=== PATIENT | female | born 1950 | race Caucasian/White ===

== ENCOUNTER → 2016-06-19 | Outpatient (CLI) | payer MEDICARE, BC ==
[2016-06-19 11:37] VITALS: BP 150/70; PULSE 89; RESP 16; TEMP 98.2; BMI 39.8
--- NOTE | 2016-06-20 07:12 | PN ---
DATE OF SERVICE: 06/19/2016 CHIEF COMPLAINT: Bariatric assessment. HISTORY OF PRESENT ILLNESS: Claudette Al is a 65-year-old female with long-standing history of morbid obesity. At a height of 5 feet and 1/4 inch, her highest weight was 210 pounds. Her ideal body weight is 127 pounds. Today she comes in weighing 205 pounds. She has maintained a 5 pound weight loss. Body mass index reduced from 40.8 down to 40. She is also looking into a Haydee-en-Y gastric bypass for the severity of gastroesophageal reflux disease. She also has intermittent abdominal pain particularly along the right upper quadrant. She has completed CT of the abdomen and pelvis which demonstrated no obstruction. Otherwise, she has completed medical supervised weight loss also with her primary care provider. She has completed a medical risk assessment as well. Now she presents for further evaluation and management. PAST MEDICAL HISTORY: 1. Morbid obesity. 2. Gastroesophageal reflux disease. 3. Hypertension. 4. Depression. 5. Chronic obstructive pulmonary disease. 6. Osteoarthritis of the lower back. 7. Osteoarthritis of the bilateral hips. 8. History of Faye's esophagus. 9. Posttraumatic stress disorder. PAST SURGICAL HISTORY: 1. Colonoscopy. 2. Upper endoscopy. 3. Lower back surgery. 4. Cholecystectomy. MEDICATIONS: 1. Multivitamin. 2. Xopenex. 3. Cymbalta. 4. Q-Deyanira. 5. Aspirin. 6. Vitamin C. ALLERGIES: PENICILLIN. SOCIAL HISTORY: Lifelong nontobacco user. She is . FAMILY HISTORY: Pertinent for morbid obesity. Also familial history of cancer of unknown type. REVIEW OF SYSTEMS: CONSTITUTIONAL: [place] body weight of 127 pounds. She is 78 pounds overweight. Body mass index reduced from 40.8 down to 40. HEENT: No troubles with vision or hearing. No reports of recent dysphagia. ENDOCRINE: No reports of thyroid disorders or active diabetes. RESPIRATORY: No recent pneumonia. However, has chronic obstructive pulmonary disease. Also, with sleep apnea. CARDIOVASCULAR: History of hypertension. No recent heart attack. GASTROINTESTINAL: History of Faye's esophagus and severe gastroesophageal reflux disease. MUSCULOSKELETAL: Osteoarthritis of the lower back. Also osteoarthritis of the bilateral hips secondary to morbid obesity. NEURO: No reports of stroke or seizure disorders. PSYCH: Has depression including posttraumatic stress disorder. No recent psychosis. HEMATOLOGIC: No reports of pulmonary embolisms or DVTs. PHYSICAL EXAM: VITAL SIGNS: 98.2, 89, 16, 150/70, 5 feet 1/4 inch, 205 pounds. Body mass index 39.8. ABDOMEN: Protuberant, soft. GENERAL: Well-developed, pleasant female in no acute distress. HEENT: No scleral icterus. Extraocular movements grossly intact. Moist buccal mucosa. NECK: Supple without lymphadenopathy. CHEST: Nonlabored respirations. Equal bilateral excursions. CARDIOVASCULAR: Regular rate and rhythm. MUSCULOSKELETAL: No clubbing, cyanosis, or edema. NEURO: No focal or lateralizing signs. Cranial nerves II to XII grossly intact. PSYCH: Appropriate affect. Alert and oriented to person, place, and time. STUDIES: CT of the abdomen and pelvis was reviewed, demonstrating no acute processes. A 12-lead EKG demonstrated normal sinus rhythm. LABS: Hemoglobin was normal at 13.8. Cholesterol was elevated at 215. LDL was elevated at 167. Vitamin D was running low at 22.2. ASSESSMENT: 1. Morbid obesity due to excess calories. 2. Body mass index reduced from 40.8 down to 40. 3. History of diffuse abdominal pain. 4. Osteoarthritis of bilateral hips. 5. Osteoarthritis of bilateral knees. 6. Gastroesophageal reflux disease with history of Faye's esophagus. 7. Diaphragmatic hiatal hernia. 8. Essential hypertension. 9. Right upper quadrant abdominal pain. 10. Panniculitis. 11. History of depression without suicidal ideation. 12. Hypertensive heart disease. 13. Chronic obstructive pulmonary disease. 14. Obstructive sleep apnea. 15. Depression. 16. Osteoarthritis of lower back. 17. Dietary surveillance and counseling. PLAN: 1. A second-generation bariatric consent form was reviewed in detail including benefits and risks of the band, sleeve as well as a Haydee-en-Y gastric bypass. As she has had previous abdominal surgeries, risk for a sleeve gastrectomy was described at length as moderate intra-abdominal scar tissue is contraindicated. 2. Inpatient hospitalization greater than 2 nights advised. 3. Deep venous thrombosis prophylaxis. 4. Antibiotic prophylaxis. 5. Increased risk for gastrojejunal stricture including protein malnutrition was reviewed at length. 6. Recommend 2 week high protein, low caloric diet to address hepatomegaly. 7. I have also asked the patient to identify protein shakes of her choice now as to avoid any further troubles with her nutrition after surgery. [facility]
== END | disposition home or self-care (01) ==
LOC: BARWHC3 10:42
PROVIDERS: ATTEND Surgery Plastic and Reconstructive Surgery
DX: Z01.818 Encounter for other preprocedural examination (principal); E66.01 Morbid (severe) obesity due to excess calories; Z68.41 Body mass index [BMI] 40.0-44.9, adult; K21.9 Gastro-esophageal reflux disease without esophagitis; K22.70 Barrett's esophagus without dysplasia
CPT/HCPCS: 99211

== ENCOUNTER 2016-07-14 07:33 | Inpatient (IN) | payer MEDICARE, BC ==
--- NOTE | 2016-07-14 06:15 | P.GSHP ---
History of Present Illness H&P Date: 07/14/16 CHIEF COMPLAINT: Bariatric assessment. HISTORY OF PRESENT ILLNESS: Claudette Al is a 65-year-old female with long-standing history of morbid obesity. At a height of 5 feet and 1/4 inch, her highest weight was 210 pounds. Her ideal body weight is 127 pounds. Today she comes in weighing 204 pounds. She has maintained a 5 pound weight loss. Body mass index reduced from 40.8 down to 40. She is also looking into a Haydee-en-Y gastric bypass for the severity of gastroesophageal reflux disease. She has completed medical supervised weight loss also with her primary care provider. She has completed a medical risk assessment as well. PAST MEDICAL HISTORY: 1. Morbid obesity. 2. Gastroesophageal reflux disease. 3. Hypertension. 4. Depression. 5. Chronic obstructive pulmonary disease. 6. Osteoarthritis of the lower back. 7. Osteoarthritis of the bilateral hips. 8. History of Faye's esophagus. 9. Posttraumatic stress disorder. PAST SURGICAL HISTORY: 1. Colonoscopy. 2. Upper endoscopy. 3. Lower back surgery. 4. Cholecystectomy. MEDICATIONS: 1. Multivitamin. 2. Xopenex. 3. Cymbalta. 4. Q-Deyanira. 5. Aspirin. 6. Vitamin C. ALLERGIES: PENICILLIN. SOCIAL HISTORY: Lifelong nontobacco user. She is . FAMILY HISTORY: Pertinent for morbid obesity. Also familial history of cancer of unknown type. REVIEW OF SYSTEMS: CONSTITUTIONAL: [place] body weight of 127 pounds. She is 78 pounds overweight. Body mass index reduced from 40.8 down to 40. HEENT: No troubles with vision or hearing. No reports of recent dysphagia. ENDOCRINE: No reports of thyroid disorders or active diabetes. RESPIRATORY: No recent pneumonia. However, has chronic obstructive pulmonary disease. Also, with sleep apnea. CARDIOVASCULAR: History of hypertension. No recent heart attack. GASTROINTESTINAL: History of Faye's esophagus and severe gastroesophageal reflux disease. MUSCULOSKELETAL: Osteoarthritis of the lower back. Also osteoarthritis of the bilateral hips secondary to morbid obesity. NEURO: No reports of stroke or seizure disorders. PSYCH: Has depression including posttraumatic stress disorder. No recent psychosis. HEMATOLOGIC: No reports of pulmonary embolisms or DVTs. PHYSICAL EXAM: VITAL SIGNS: 98.2, 89, 16, 150/70, 5 feet 1/4 inch, 205 pounds. Body mass index 39.8. ABDOMEN: Protuberant, soft. GENERAL: Well-developed, pleasant female in no acute distress. HEENT: No scleral icterus. Extraocular movements grossly intact. Moist buccal mucosa. NECK: Supple without lymphadenopathy. CHEST: Nonlabored respirations. Equal bilateral excursions. CARDIOVASCULAR: Regular rate and rhythm. MUSCULOSKELETAL: No clubbing, cyanosis, or edema. NEURO: No focal or lateralizing signs. Cranial nerves II to XII grossly intact. PSYCH: Appropriate affect. Alert and oriented to person, place, and time. ASSESSMENT: 1. Morbid obesity due to excess calories. 2. Body mass index reduced from 40.8 down to 40. 3. History of diffuse abdominal pain. 4. Osteoarthritis of bilateral hips. 5. Osteoarthritis of bilateral knees. 6. Gastroesophageal reflux disease with history of Faye's esophagus. 7. Diaphragmatic hiatal hernia. 8. Essential hypertension. 9. Right upper quadrant abdominal pain. 10. Panniculitis. 11. History of depression without suicidal ideation. 12. Hypertensive heart disease. 13. Chronic obstructive pulmonary disease. 14. Obstructive sleep apnea. 15. Depression. 16. Osteoarthritis of lower back. 17. Dietary surveillance and counseling. PLAN: 1. A second-generation bariatric consent form was reviewed in detail including benefits and risks of the band, sleeve as well as a Haydee-en-Y gastric bypass. As she has had previous abdominal surgeries, risk for a sleeve gastrectomy was described at length as moderate intra-abdominal scar tissue is contraindicated. 2. Inpatient hospitalization greater than 2 nights advised. 3. Deep venous thrombosis prophylaxis. 4. Antibiotic prophylaxis. 5. She has elected for laparoscopic Haydee-en-Y gastric bypass with possible sleeve gastrectomy. Past Medical History Past Medical History: Asthma, Osteoarthritis (OA) Additional Past Medical History / Comment(s): degenerative disc desease, spinal stenosis, hiatel hernia History of Any Multi-Drug Resistant Organisms: None Reported Past Surgical History: Back Surgery, Cholecystectomy Additional Past Surgical History / Comment(s): Barrets esophagus surgery 2008 at [facility] in [facility]. Past Anesthesia/Blood Transfusion Reactions: Postoperative Nausea & Vomiting ( PONV) Additional Past Anesthesia/Blood Transfusion Reaction / Comment(s): no problems with prior blood transfusion. Past Psychological History: Depression, PTSD Smoking Status: Never smoker Past Alcohol Use History: None Reported Past Drug Use History: None Reported - Past Family History Father Family Medical History: Cancer Medications and Allergies Home Medications Medication Instructions Recorded Confirmed Type Ascorbic Acid [Vitamin C] 500 mg PO DAILY@1200 04/25/15 07/02/16 History Aspirin [Adult Low Dose Aspirin EC] 81 mg PO DAILY 04/25/15 07/02/16 History Beclomethasone Dipropionate [Qvar 2 puff INHALATION BID 04/25/15 07/02/16 History 80 mcg/puff] DULoxetine HCL [Cymbalta] 60 mg PO QAM 04/25/15 07/02/16 History Levalbuterol HCl [Xopenex 1.25 mg IH BID 04/25/15 07/02/16 History Concentrate] Multivitamins, Thera [Theragran] 1 each PO DAILY 04/25/15 07/02/16 History Megestrol [Megace] 40 mg PO QAM 05/15/16 07/02/16 History Ibuprofen [Advil] 200 mg PO Q8HR PRN 07/11/16 07/11/16 History Allergies Allergy/AdvReac Type Severity Reaction Status Date / Time Penicillins Allergy Dyspnea Verified 07/02/16 08:43 hydrocodone [From Coldiron] AdvReac Nausea Verified 07/02/16 08:54
[~2016-07-14 07:33] MED LIST: ACETAMINOPHEN IV (For NPO) 1,000 MG in EMPTY BAG 1 BAG IVPB ONE; CHLORHEXIDINE GLUCONATE 15 ML CUP MUCOUS MEM ONE; CLINDAMYCIN 900 MG in DEXTROSE 5% IN WATER 50 ML IVPB ONE; DEXAMETHASONE SOD PHOSPHATE 10 MG/ML 1 ML VIAL IV ONE; ENOXAPARIN 40 MG/0.4 ML SYRINGE SQ STA; LIDOCAINE 1% 20 ML VIAL (10MG/ML) FOR IV START INTRADERMA PRN; ONDANSETRON 4 MG/2 ML VIAL IVP ONE; PANTOPRAZOLE 40 MG/10 ML VIAL IV STA
[2016-07-14] MEDS: LACTATED RINGERS 1,000 ML IV SCH (08:28)
[2016-07-14] MEDS ORDERED: fentaNYL (PF) 50 MCG/ML 2 ML AMP ONE (09:24)
[2016-07-14] MEDS ORDERED: ROCURONIUM BROMIDE 10 MG/ML 10 ML VIAL IV ONE ×2 (09:24)
[2016-07-14] MEDS ORDERED: GLYCOPYRROLATE 0.2 MG/ML 2 ML VIAL ONE (09:24)
[2016-07-14] MEDS ORDERED: SUCCINYLCHOLINE CHLORIDE 100 MG/5 ML SYR IV ONE (09:24)
[2016-07-14] MEDS ORDERED: LIDOCAINE 1% INJ 10MG/ML (20 ML MDV) ONE (09:24)
[2016-07-14] MEDS ORDERED: MIDAZOLAM 2 MG/2 ML VIAL ONE (09:24)
[2016-07-14] MEDS ORDERED: NEOSTIGMINE 1 MG/ML 10 ML VIAL ONE (09:24)
[2016-07-14] MEDS ORDERED: PHENYLEPHRINE-0.9% NACL SYG 1 MG/10 ML SYRINGE ONE (09:24)
[2016-07-14] MEDS ORDERED: PROPOFOL 10 MG/ML 20 ML VIAL IV ONE (09:24)
[2016-07-14] MEDS: BUPIVACAINE LIPOSOME/PF 1.3% 20 ML, BUPIVACAIN-EPI 0.5%-1:200,000 25 ML, SODIUM CHLORID... MISCELLANE ONE ×6 (09:57→10:05)
[2016-07-14] MEDS ORDERED: LACTATED RINGERS 1,000 ML IV ONE ×2 (10:57→13:07)
[2016-07-14] MEDS ORDERED: SIMETHICONE 40 MG/0.6 ML DROPS 2,000 MG/30 ML BOTTLE PO PRN (14:14)
[2016-07-14] MEDS ORDERED: ONDANSETRON 4 MG/2 ML VIAL IVP PRN (14:14)
[2016-07-14] MEDS ORDERED: NALOXONE 0.4 MG/ML 1 ML VIAL IV PRN (14:14)
[2016-07-14] MEDS ORDERED: diphenhydrAMINE 50 MG/ML 1 ML VIAL IVP PRN (14:14)
--- NOTE | 2016-07-14 14:14 | P.PCN ---
Date of Procedure: 07/14/16 Preoperative Diagnosis: Morbid obesity Postoperative Diagnosis: Same Procedure(s) Performed: Laparoscopic Haydee-en-Y gastric bypass 75 cm antecolic antigastric with 21 mm Orvil, laparoscopic lysis of adhesions hour 45 minutes, reduction of incarcerated incisional hernia epigastrium, esophagogastro duodenoscopy with snare of foreign body/Orvil, esophagogastrojejunoscopy Condition: stable Operative Findings: 1. Severe adhesions along the gastric cardia and hiatus from previous transendoscopic fundoplasty. 2. Severe peritoneal adhesions epigastrium and bilateral upper abdomen from previous open cholecystectomy 3. Indications and short greater omentum requiring limb 75 cm with minimal tension. 4. In negative leak test with reinforcement of gastrojejunostomy at the 12:00, 9:00 and 3 o'clock position 5. Placement of #19 round Geoffrey-Rosario drain anterior to the gastrojejunal anastomosis secondary to contamination of case. 6. Closure of mesenteric defects performed.
[2016-07-14] MEDS: LEVOFLOXACIN 500MG-D5W PMX 500 MG in DEXTROSE/WATER 1 100ML.BAG IVPB SCH (14:46)
[2016-07-14] MEDS ORDERED: ACETAMINOPHEN IV (For NPO) 1,000 MG in EMPTY BAG 1 BAG IVPB ONE (15:00)
[2016-07-14] MEDS: HYDROmorphone 1 MG/ML 1 ML SYRINGE IVP PRN ×5 (15:07→20:37)
[2016-07-14 16:19] VITALS: BMI 35.1
[2016-07-14] MEDS: ALBUTEROL NEBULIZED 2.5 MG/3 ML INHALATION SCH ×2 (16:21→20:09)
[2016-07-14] MEDS: 0.9% NACL WITH KCL 20 MEQ/L 1,000 ML IV SCH ×3 (18:16→21:43)
[2016-07-14] MEDS ORDERED: SCOPOLAMINE 1.5MG/72HR PATCH TRANSDERM STA (19:12)
--- NOTE | 2016-07-14 19:18 | P.PN ---
Subjective Principal diagnosis: Morbid obesity The patient is postoperative day zero status post Haydee-en-Y gastric bypass. She is ambulating with some assistance. She has urinated. She complains of some nausea. Pain is controlled. Objective - Vital Signs Vital signs: Vital Signs Temp 97.0 F L 07/14/16 15:40 Pulse 68 07/14/16 17:30 Resp 14 07/14/16 16:21 BP 137/71 07/14/16 17:30 Pulse Ox 98 07/14/16 16:30 Intake & Output 07/14/16 07/14/16 07/15/16 06:59 18:59 06:59 Intake Total 2606 Output Total 1265 Balance 1341 Weight 90 kg Intake: IV 2606 Output: Drainage 80 Right Abdomen 80 Urine 1125 Uretheral (Costa) 150 Estimated Blood Loss 60 - Exam GENERAL: Well developed and in no acute distress. Pleasant. HEENT: No sclera icterus. Extraocular movements grossly intact. Moist buccal mucosa. Head is atraumatic, normocephalic. Hears conversational speech. No nasal drainage. NECK: Supple without lymphadenopathy. No JV distention. CHEST: Non-labored respirations and equal bilateral excursions. CARDIOVASCULAR: Regular rate and rhythm. Palpable 2+ radial pulses. ABDOMEN: Soft, minimal distention. THEODORA serosanguineous. MUSCULOSKELETAL: No clubbing, cyanosis or edema. NEUROLOGIC: No focal or lateralizing signs. PSYCH: Appropriate affect. Alert and oriented to person, place and time. Assessment and Plan (1) Morbid obesity due to excess calories Status: Chronic (2) S/P gastric bypass Status: Acute (3) Reflux esophagitis Status: Chronic (4) Hypertension Status: Chronic (5) Depression Status: Chronic Plan: 1. I have added scopolamine patch and Reglan scheduled. 2. Ice chips at this time. 3. Continue her hospitalization. 4. Home healthcare consult.
[2016-07-14] MEDS: METOCLOPRAMIDE 5 MG/ML 2 ML VIAL IVP SCH (20:03)
[2016-07-14] MEDS: BUDESONIDE 1 MG/2 ML NEBU INHALATION SCH (20:09)
[2016-07-14] MEDS: MAGNESIUM SULFATE-D5W PMX 1 GM in DEXTROSE/WATER 1 100ML.BAG IVPB SCH ×2 (20:41→22:13)
[2016-07-15] MEDS: METOCLOPRAMIDE 5 MG/ML 2 ML VIAL IVP SCH ×4 (00:05→18:09)
[2016-07-15] MEDS: HYDROmorphone 1 MG/ML 1 ML SYRINGE IVP PRN (06:59)
[2016-07-15] MEDS: ENOXAPARIN 40 MG/0.4 ML SYRINGE SQ SCH (08:35)
[2016-07-15] MEDS: PANTOPRAZOLE 40 MG/10 ML VIAL IV SCH (08:35)
[2016-07-15 08:42] LABS: Basophils % (A) 0 %; CHCM 33.2; Eosinophils % (A) 0 %; HCT 34.5 % (34.0-46.0); HDW 2.67; Luc # (Auto) 0.07; Luc % (Auto) 1; Lymphocytes % (A) 11 %; MCH 28.9 pg (25.0-35.0); MCHC 31.8 g/dL (31.0-37.0); MCV 90.8 fL (80.0-100.0); Mean Platelet Volume 8.3; Monocytes # (A) 0.4 k/uL (0-1.0); Monocytes % (A) 4 %; Neutrophils # (A) 8.1 k/uL (1.3-7.7); Neutrophils % (A) 85 %; RDW 13.3 % (11.5-15.5); WBC 9.5 k/uL (3.8-10.6); WBC (Perox) 10.49
[2016-07-15] MEDS: BUDESONIDE 1 MG/2 ML NEBU INHALATION SCH ×2 (08:59→20:32)
[2016-07-15] MEDS: ALBUTEROL NEBULIZED 2.5 MG/3 ML INHALATION SCH ×4 (08:59→20:32)
[2016-07-15 09:10] LABS: Anion Gap 10 mmol/L; Blood Urea Nitrogen 11 mg/dL (7-17); Carbon Dioxide 22 mmol/L (22-30); Chloride 106 mmol/L (98-107); Magnesium 2.2 mg/dL (1.6-2.3); Non-African American GFR(MDRD) >60 (>60 ml/min/1.73 sqM); Phosphorous 2.7 mg/dL (2.5-4.5); Potassium 4.5 mmol/L (3.5-5.1); Sodium 138 mmol/L (137-145)
--- NOTE | 2016-07-15 09:39 | P.PN ---
Subjective Principal diagnosis: Morbid obesity The patient is postoperative day one status post Haydee-en-Y gastric bypass. Her is at bedside. Pain is well controlled. Denies nausea or vomiting. No fevers or chills. Objective - Vital Signs Vital signs: Vital Signs Temp 98.7 F 07/15/16 07:00 Pulse 85 07/15/16 09:14 Resp 16 07/15/16 07:00 BP 124/70 07/15/16 07:00 Pulse Ox 95 07/15/16 09:04 Intake & Output 07/14/16 07/15/16 07/15/16 18:59 06:59 18:59 Intake Total 2606 1550 Output Total 1265 Balance 1341 1550 Weight 90 kg Intake: IV 2606 1550 0.9% NaCl with KCl 20 Meq 1350 /l 1,000 ml @ 150 mls/hr IV .Q6H40M [facility] Rx#: [id number] Magnesium Sulfate-D5w Pmx 200 1 gm In Dextrose/Water 1 100ml.bag @ 100 mls/hr IVPB Q1H [facility] Rx#: [id number] Output: Drainage 80 Right Abdomen 80 Urine 1125 Uretheral (Costa) 150 Estimated Blood Loss 60 Other: Voiding Method Toilet # Voids 3 1 - Exam GENERAL: Well developed and in no acute distress. Pleasant. HEENT: No sclera icterus. Extraocular movements grossly intact. Moist buccal mucosa. Head is atraumatic, normocephalic. Hears conversational speech. No nasal drainage. NECK: Supple without lymphadenopathy. No JV distention. CHEST: Non-labored respirations and equal bilateral excursions. CARDIOVASCULAR: Regular rate and rhythm. Palpable 2+ radial pulses. ABDOMEN: Soft, minimal distention. Dressings intact. No signs of cellulitis or infection. THEODORA sanguinous. MUSCULOSKELETAL: No clubbing, cyanosis or edema. NEUROLOGIC: No focal or lateralizing signs. PSYCH: Appropriate affect. Alert and oriented to person, place and time. - Labs CBC & Chem 7: 07/16/16 07:27 07/15/16 08:29 Labs: Abnormal Lab Results - Last 24 Hours (Table) 07/15/16 07/15/16 Range/Units 08:25 08:29 Hgb 11.0 L (11.4-16.0) gm/dL Neutrophils # 8.1 H (1.3-7.7) k/uL Calcium 8.0 L (8.4-10.2) mg/dL Assessment and Plan (1) Morbid obesity due to excess calories Status: Chronic (2) S/P gastric bypass Status: Acute (3) Reflux esophagitis Status: Chronic (4) Hypertension Status: Chronic (5) Depression Status: Chronic Plan: 1. Start bariatric clears. 2. Home heathcare evaluation. 3. Disposition in 24 hrs.
[2016-07-15] MEDS: 0.9% NACL WITH KCL 20 MEQ/L 1,000 ML IV SCH (10:08)
[2016-07-15] MEDS: LACTATED RINGERS 1,000 ML IV SCH (10:09)
[2016-07-15] MEDS ORDERED: SODIUM CHLORIDE 0.9% 1,000 ML BAG ONE (11:47)
[2016-07-15] MEDS: 1: MVI, ADULT NO.4 WITH VIT K 10 ML, THIAMINE 100 MG, FOLIC ACID 1 MG, POTASSIUM CHLORID IV SCH ×12 (11:47→21:18)
[2016-07-15] MEDS: HYDROcodone/APAP 15 ML SOLUTION PO PRN ×2 (14:15→19:53)
[2016-07-15] MEDS: LEVOFLOXACIN 500MG-D5W PMX 500 MG in DEXTROSE/WATER 1 100ML.BAG IVPB SCH (15:36)
--- NOTE | 2016-07-15 19:29 | P.PN ---
Progress Note - Text Patient seen and evaluated this evening. She is tolerating liquids. Pain is controlled. 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 Will continue antibiotics for history of contaminated case. Continue with THEODORA upon discharge. Repeat labs with possible discharge tomorrow.
[2016-07-16] MEDS: METOCLOPRAMIDE 5 MG/ML 2 ML VIAL IVP SCH ×3 (00:08→12:17)
[2016-07-16] MEDS ORDERED: SODIUM CHLORIDE 0.9% 1,000 ML BAG ONE (00:08)
[2016-07-16] MEDS: 1: MVI, ADULT NO.4 WITH VIT K 10 ML, THIAMINE 100 MG, FOLIC ACID 1 MG, POTASSIUM CHLORID IV SCH ×6 (00:08)
[2016-07-16] MEDS: BUDESONIDE 1 MG/2 ML NEBU INHALATION SCH (07:54)
[2016-07-16] MEDS: ALBUTEROL NEBULIZED 2.5 MG/3 ML INHALATION SCH ×2 (07:54→14:36)
[2016-07-16 08:00] LABS: Basophils % (A) 0 %; CH 29.5; CHCM 32.3; Eosinophils # (A) 0.1 k/uL (0-0.7); Eosinophils % (A) 2 %; HCT 31.9 % (34.0-46.0); HGB 10.1 gm/dL (11.4-16.0); Luc # (Auto) 0.08; Luc % (Auto) 1; Lymphocytes # (A) 1.3 k/uL (1.0-4.8); Lymphocytes % (A) 18 %; MCH 29.1 pg (25.0-35.0); MCHC 31.7 g/dL (31.0-37.0); MCV 91.8 fL (80.0-100.0); Mean Platelet Volume 7.8; Monocytes # (A) 0.3 k/uL (0-1.0); Monocytes % (A) 4 %; Neutrophils # (A) 5.2 k/uL (1.3-7.7); Neutrophils % (A) 75 %; RBC 3.47 m/uL (3.80-5.40); RDW 13.6 % (11.5-15.5); WBC 6.9 k/uL (3.8-10.6); WBC (Perox) 7.39
[2016-07-16] MEDS ORDERED: BISACODYL 5 MG TABLET.DR PO PRN (08:00)
[2016-07-16] MEDS: ENOXAPARIN 40 MG/0.4 ML SYRINGE SQ SCH (08:18)
[2016-07-16] MEDS: PANTOPRAZOLE 40 MG/10 ML VIAL IV SCH (08:19)
[2016-07-16 08:32] VITALS: RESP 16
[2016-07-16] MEDS: SODIUM PHOSPHATE 10 MMOL in SODIUM CHLORIDE 0.9% 250 ML IVPB SCH ×2 (10:33→12:33)
--- NOTE | 2016-07-16 10:53 | P.PN ---
Subjective Principal diagnosis: Morbid obesity The patient is postoperative day 2 status post Haydee-en-Y gastric bypass from a previous transendoscopic fundoplasty. is at bedside. Yesterday she had some difficulty with swallowing now that has completely resolved. She states she feels quite well. No reports of nausea and vomiting. She's tolerating liquids. Her pain is well-controlled. Objective - Vital Signs Vital signs: Vital Signs Temp 97.4 F L 07/16/16 07:00 Pulse 84 07/16/16 07:54 Resp 16 07/16/16 08:00 BP 176/84 07/16/16 07:00 Pulse Ox 95 07/16/16 07:00 Intake & Output 07/15/16 07/16/16 07/16/16 18:59 06:59 18:59 Intake Total 1200 2371.2 Output Total 30 Balance 1170 2371.2 Weight 90 kg Intake: IV 800 1350 0.9% NaCl with KCl 20 Meq 1350 /l 1,000 ml @ 150 mls/hr IV .Q6H40M [facility] Rx#: [id number] Mvi, Adult No.4 with Vit 800 K 10 ml Thiamine 100 mg Folic Acid 1 mg Potassium Chloride 20 meq In Sodium Chloride 0.9% 1, 000 ml @ 100 mls/hr IV . BY DURATION [facility] Rx#: [id number] Intake, IV Titration 1021.2 Amount Mvi, Adult No.4 with Vit 1021.2 K 10 ml Thiamine 100 mg Folic Acid 1 mg Potassium Chloride 20 meq In Sodium Chloride 0.9% 1, 000 ml @ 100 mls/hr IV . BY DURATION [facility] Rx#: [id number] Oral 400 Output: Drainage 30 Right Abdomen 30 Other: Voiding Method Toilet Toilet # Voids 1 3 - Exam GENERAL: Well developed and in no acute distress. Pleasant. HEENT: No sclera icterus. Extraocular movements grossly intact. Moist buccal mucosa. Head is atraumatic, normocephalic. Hears conversational speech. No nasal drainage. NECK: Supple without lymphadenopathy. No JV distention. CHEST: Non-labored respirations and equal bilateral excursions. CARDIOVASCULAR: Regular rate and rhythm. Palpable 2+ radial pulses. ABDOMEN: Soft, minimal distention. Dressings intact. No signs of cellulitis or infection. THEODORA sanguinous more than serous. MUSCULOSKELETAL: No clubbing, cyanosis or edema. NEUROLOGIC: No focal or lateralizing signs. PSYCH: Appropriate affect. Alert and oriented to person, place and time. - Labs CBC & Chem 7: 07/16/16 07:27 07/15/16 08:29 Labs: Abnormal Lab Results - Last 24 Hours (Table) 07/16/16 Range/Units 07:27 RBC 3.47 L (3.80-5.40) m/uL Hgb 10.1 L (11.4-16.0) gm/dL Hct 31.9 L (34.0-46.0) % Assessment and Plan (1) Morbid obesity due to excess calories Status: Chronic (2) S/P gastric bypass Status: Acute (3) Reflux esophagitis Status: Chronic (4) Hypertension Status: Chronic (5) Depression Status: Chronic Plan: 1. Discharged home today with home health care services. 2. Discharge instructions reviewed which she demonstrated understanding. 3. Medical reconciliation performed with avoidance of ibuprofen. 4. Follow up at the bariatric center in 5 days.
--- NOTE | 2016-07-16 10:53 | P.DS ---
Providers Date of admission: 07/14/16 07:33 Expected date of discharge: 07/16/16 Attending physician: Nancy Gomez Primary care physician: Sheela Poe - Discharge Diagnosis(es) (1) Morbid obesity due to excess calories Status: Chronic (2) S/P gastric bypass Status: Acute (3) Reflux esophagitis Status: Chronic (4) Hypertension Status: Chronic (5) Depression Status: Chronic (6) Obstructive sleep apnea Status: Chronic (7) BMI over 35 Status: Chronic (8) Failed fundoplication Status: Chronic (9) Faye esophagus Status: Chronic Hospital Course: The patient is a 65-year-old female who comes in with history of morbid obesity. She went through the bariatric program and had medical including cardiac clearance. Surgical options were described. She had elected for a Haydee -en-Y gastric bypass to address her reflux disease. Intraoperative findings were consistent with previous fundoplasty which added additional complexity to her case. Postoperatively, she was tolerating diet. She was afebrile. A THEODORA drain was placed. Home health care services were provided. Recommended follow-up in the bariatric center within 7 days. Pertinent Studies: None. Procedures: 1. Laparoscopic lysis of adhesions over 3-4 hours. 2. Takedown of fundoplasty. 3. Laparoscopic Haydee-en-Y gastric bypass antigastric anticolic, 75 cm with 21 mm Orvil. 4. Placement of THEODORA drain. 5. Placement of Linda drain, left upper abdomen. 6. Intraoperative EGD. 7. Intraoperative EGJ. Patient Condition at Discharge: Stable Plan - Discharge Summary New Discharge Prescriptions: HYDROcodone/APAP [Clarkia Elixir 7.5-325Mg/15Ml] 30 ml PO Q6HR PRN #400 solution PRN Reason: Severe Pain Omeprazole 40 mg PO DAILY #90 capsule.dr Discharge Medication List Beclomethasone Dipropionate [Qvar 80 mcg/puff] 2 puff INHALATION RT-BID [History] DULoxetine HCL [Cymbalta] 60 mg PO QAM 04/25/15 [History] Levalbuterol HCl [Xopenex Concentrate] 1.25 mg INHALATION RT-BID 04/25/15 [ History] HYDROcodone/APAP [Clarkia Elixir 7.5-325Mg/15Ml] 30 ml PO Q6HR PRN #400 solution 07/16/16 [Rx] Omeprazole 40 mg PO DAILY #90 capsule. 07/16/16 [Rx] Follow up Appointment(s)/Referral(s): Nancy Gomez MD [STAFF PHYSICIAN] - 07/21/16 10:30 am (Bariatric Center) [facility], [NON-STAFF] - 1 Week Patient Instructions/Handouts: Geoffrey-Rosario Drain Care (GEN), Nutrition after Bariatric Surgery (DC), Haydee-en-Y Gastric Bypass (DC) Activity/Diet/Wound Care/Special Instructions: No lifting over 4 pounds in 4 weeks. Notify bariatric center for any issues. Dressings to be discontinued in the office. Stay bariatric liquid diet Discharge Disposition: HOME WITH HOME HEALTH SERVICES
[2016-07-16 14:01] VITALS: BP 159/80; PULSE 91; TEMP 98.4
--- NOTE | 2016-07-21 17:52 | P.OP ---
Date of Procedure: 07/14/16 Description of Procedure: SURGEON: ENRICO FIELD MD STUDIO OPERATIONS MANAGER: SANTO MCGOVERN. PREOPERATIVE DIAGNOSES: 1. Morbid obesity due to excess calories. 2. Body mass index reduced from 40.8 down to 40. 3. History of diffuse abdominal pain. 4. Osteoarthritis of bilateral hips. 5. Osteoarthritis of bilateral knees. 6. Gastroesophageal reflux disease with history of Faye's esophagus. 7. Diaphragmatic hiatal hernia. 8. Essential hypertension. 9. Right upper quadrant abdominal pain. 10. Panniculitis. 11. History of depression without suicidal ideation. 12. Hypertensive heart disease. 13. Chronic obstructive pulmonary disease. 14. Obstructive sleep apnea. 15. Depression. 16. Osteoarthritis of lower back. 17. Dietary surveillance and counseling. POSTOPERATIVE DIAGNOSES: 1. Morbid obesity due to excess calories. 2. Body mass index reduced from 40.8 down to 40. 3. History of diffuse abdominal pain. 4. Osteoarthritis of bilateral hips. 5. Osteoarthritis of bilateral knees. 6. Gastroesophageal reflux disease with history of Faye's esophagus. 7. Diaphragmatic hiatal hernia. 8. Essential hypertension. 9. Right upper quadrant abdominal pain. 10. Panniculitis. 11. History of depression without suicidal ideation. 12. Hypertensive heart disease. 13. Chronic obstructive pulmonary disease. 14. Obstructive sleep apnea. 15. Depression. 16. Osteoarthritis of lower back. 17. Dietary surveillance and counseling. 18. Severe abdominal adhesions of greater omentum to anterior abdominal wall, epigastrium, right upper quadrant, superior pole of the stomach. 19. Surgical evidence of failed previous transendoscopic fundoplasty for reflux disease. OPERATION: 1. Laparoscopic lysis of adhesions over 2.5 hours combined bilateral upper quadrant, epigastrium, superior pole of the stomach. 2. Laparoscopic Haydee-en-Y gastric bypass, 75 cm antecolic antegastric Haydee limb , with 21 mm Orvil. 3. Endoscopic placement of 21 mm Orvil using upper endoscopy. 4. Intraoperative esophagogastrojejunoscopy. 5. Application of OptiFoam dressing. 6. Placement of quarter inch Linda drain left upper quadrant incision. 7. Reduction of incarcerated incisional hernia epigastrium. 8. Placement of round #19 drain anterior to gastrojejunal anastomosis. ANESTHESIA: 85 mL Exparel with sensorcaine with epinephrine and normal saline mixture. ESTIMATED BLOOD LOSS: 60 mL SPECIMENS REMOVED: None. COMPLICATIONS: None. INDICATIONS: Claudette Al is a 65-year-old female with long-standing history of morbid obesity. At a height of 5 feet and 3 inch, her highest weight was 210 pounds. Her ideal body weight is 140 pounds. Today she comes in weighing 198 pounds. She has maintained a 12 pound weight loss. Body mass index reduced from 37.2 down to 35.1. She is also looking into a Haydee-en-Y gastric bypass for the severity of gastroesophageal reflux disease. She has completed medical supervised weight loss also with her primary care provider. She has completed a medical risk assessment as well. All surgical options for morbid obesity had been described using the [place] bariatric surgery collaborative comorbidity resolution including complication risk score. The patient had elected for a gastric bypass with possible sleeve gastrectomy. A second-generation bariatric consent form was described in detail including the possibility of protein malnutrition, leaks, gastrojejunal stricture, venous thrombosis for which she demonstrated understanding. Benefits and risks of the procedure were described at length. Informed consent was obtained. DESCRIPTION: The patient was brought into the operating room theater. She was placed on a split leg table. Preoperatively she had received Lovenox subcutaneously for DVT prophylaxis. Additionally she had undergone Peridex oral solution as an oral decontaminant. After general induction, the abdomen was prepped and draped in standard sterile fashion. A Costa catheter was placed. Ioban draping was placed along the abdomen. A 0 10 mm laparoscopic trocar entry was performed along the left upper abdomen as she had previous open cholecystectomy scar along the right upper abdomen. Her xiphoid to her umbilicus was 18 cm for her height of 5 foot 3 inches. Diagnostic laparoscopy demonstrated no injury to bowel, viscera, or mesentery. The liver surface was unremarkable for fatty liver disease or moderate hepatomegaly. Severe right upper abdominal adhesions from her previous cholecystectomy was identified involving the greater omentum as well as anterior and superior pole of the stomach. No injury had occurred to the small bowel or viscera. Given the severe adhesions along the proximal stomach, no large hiatal hernia was identified. At the left upper quadrant 2- 12 mm trocars were placed 1 along the left midclavicular line and another along the anterior axillary line. An additional 5 mm port was placed along the left lateral abdominal wall. The adhesions along the anterior abdominal wall was addressd using a combination of Kitner including blunt dissection and Sonicision. No enterotomies had occurred during this portion of the case. Approximately one hour of extensive lysis of adhesions was performed. An carcinoid incisional hernia from a previous open cholecystectomy was identified of approximate size 2 cm and reduced. In a mirror-toro fashion, 2 - 12 mm trocars were also placed along the right upper abdomen. The patient was repositioned to supine position with the bed levelled. Next, attention was brought to creation of the jejunojejunostomy. The transverse mesocolon, including the omentum, was reflected over the stomach. The ligament of Treitz was identified and measured 60 cm antegrade. The jejunum was divided at the 60 cm point after using metered graspers for measurement. The biliopancreatic limb was held in place by the internal medicine physician assistant. The Haydee limb was then measured 75 cm distally to avoid tension along the proposed gastrojejunal anastomosis. The Haydee limb was marked using a [place] drain and 2-0 silk on an Endo Stitch along its proximal staple edge. At 75 cm along the anti-mesenteric border of the Haydee limb, a jejunojejunostomy was proposed whereby enterotomies were created along the biliopancreatic limb including the Haydee limb using a suction Bovie cautery. The enterotomies were widened using a [place]. A bidirectional fire was performed whereby from the right side a 45 mm reece load was fired. From the left side a separate 45 mm firing had occurred, creating a 90 mm jejunojejunostomy. The defect was then closed using a 60 mm reece load. The jejunojejunostomy was found to be hemostatic. The transverse mesocolon was cleaved using Sonicision. Attention was now brought to the creation of the gastrojejunostomy. Placement of a medium size Yolanda liver retractor was used to elevate the left lobe of the liver for greater visualization of the upper abdomen, particularly the superior pole of the stomach. Given the severe adhesions along the gastric cardia and superior pole of the stomach, difficult exposure of the superior pole of the stomach was obtained. The patient was then placed in steep reverse Trendelenburg. The Yolanda liver retractor was held in place using an iron clinical nursing intern. An additional 1 hour of blunt dissection for lysis of adhesions along the greater curvature of the stomach and gastric cardia was performed. Once the hiatus was exposed, polypropylene sutures from a previous transendoscopic fundoplasty was identified and carefully freed. No full-thickness gastrotomy had occurred. Along the lesser curvature of the stomach between the third and fourth veins, dissection was made along the retrogastric space to allow first firing of the [employer] Tri-Staple purple load. Once adequately mobilized, an initial firing using a 60 mm purple load was performed perpendicular to the lesser curvature of the stomach. To completely divide the pouch from the remnant stomach, three 60 mm and 1 - 45 mm purple loads were fired towards the angle of His. A total of 5 purple staplers were used to create the gastric pouch. Hemostasis was checked with electro-Bovie cautery along the left lateral edge of the gastric remnant stomach. The patient was prepared for placement of an Orvil. The patient was Mallampati 3. A 21-mm Orvil was selected. I went to the head of the bed to perform an intraoperative esophagogastroduodenoscopy. A pediatric Olympus gastroscope was placed along the posterior oropharynx. The scope was passed to the pouch and given the angulation into the pouch, and endoscopic placement of the Orvil was performed. The scope was retrieved. A snare device was placed through the scope and used grasp the tube tip of the 21 mm Orvil. The Orvil tip was navigated to the distal portion of the gastric pouch and placed anterior to the staple line. I then scrubbed back into the case and a gastrotomy was placed along the tip of the tubing. The Orvil tubing was navigated through the left inferior lateral port at the midclavicular line. The snare was cut using an endoscopic scissor. I then went back to the head of the bed for retrieval of the scope and snare. I scrubbed back into the case. The Orvil was then carefully and successfully navigated with the help of the nurse financial compliance officer into the gastric pouch. The sutures were identified and divided. The tubing was from the 21 mm anvil. Using aseptic technique all instruments including port sites were exchanged. As the Orvil had been placed, the blind jejunal limb was brought proximally into the upper abdomen. No torsion was found upon the Haydee limb. No tension was identified as the limb was brought along the upper abdomen. The blind jejunal limb was opened using a cordless Harmonic scalpel. The 21-mm EEA stapler was brought through the left anterior lateral port site from the left side. Moderate contamination from the gastric pouch had occurred. Please note that the trocars from the Orvil tubing, including the port, were removed to minimize contamination from the oral jalil. The EEA stapler was brought through the open jejunal limb and its needle was deployed at the antimesenteric border where the anvil were mated for approximately 1 minute upon firing. The stapler was removed after irrigating the shaft of the instrument with warm normal saline. Donuts along the jejunum was thick and intact however along the stomach was thin and incomplete. The open jejunal limb defect was closed using a 60 mm reece load after releasing any tension from the blind jejunal limb. Hemostasis was checked with Sonicision along the blind jejunal limb mesentery. Care was taken to avoid any long blind limb to avoid candycane syndrome. Reinforcement sutures were placed along the gastrojejunal anastomosis at 12:00, 9:00 and 3 o'clock position. Closure of the mesenteric defects was performed, initially of the Guy defect using 2-0 silk on an Endo Stitch and a Lapra-Ty and the jejunojejunostomy mesenteric defect. I then went to the head of the bed to perform the esophagogastrojejunoscopy and a leak test. An Olympus gastroscope was passed along the posterior oropharynx which was unremarkable for any injury to the vocal cords. The scope was passed down to the proximal portion of the pouch, whereby no active bleeding was encountered. Excellent visualization of the gastrojejunostomy anastomosis, including the Haydee limb was encountered with endoscopic image obtained. The anastomosis was found to be patent. The gastrointestinal tract was desufflated. No evidence of intraoperative leak was encountered as the gastric pouch and anastomosis were submerged under normal saline solution. I then went back to the bedside of the patient, whereby with coordinated effort of the internal medicine physician assistant, irrigation was aspirated from the upper abdominal cavity. Tisseel was placed circumferentially over the anastomosis of the gastrojejunostomy. The port correlating with the EEA stapler device fascial defect was closed using a Christopher Zazueta and 0 Vicryl with 2 separate sutures. A round #19 drain was placed through the left upper lateral port and exited via the right lateral port anterior to the gastrojejunal anastomosis secondary to level of contamination. A drain stitch using 2-0 nylon was placed. All instruments and pneumoperitoneum were evacuated from the abdominal cavity. The port correlating with the EEA stapler device was copiously irrigated with 3 L of warm normal saline solution and 50 mL of hydrogen peroxide. A quarter inch [place] drain was placed along the EEA stapler site and tacked using 2-0 nylon. The rest of incisions were reapproximated using 3-0 Vicryl for deep subcutaneous tissue and dermis followed by 4-0 Monocryl in a running subcuticular fashion. For local anesthetic, 85 mL of Exparel including Sensorcaine with epinephrine and normal saline mixture was infiltrated along the skin for postop analgesia. Dermabond was applied to the skin. OptiFoam dressing was placed along the EEA stapler site. CHG Exam was placed along the THEODORA site. At the end of the procedure, needle, sponge and instrument count had been verified correct by the operating room surgical technician. She had tolerated the procedure well and was taken to the postanesthesia unit in stable condition. Total skin to skin time was 238 minutes. Intraoperative films were reviewed with the patient's family who are very pleased with the level of care. FINDINGS: 1. Negative intraoperative esophagogastrojejunoscopy leak test. 2. Liver surface unremarkable. 3. All defects including jejunojejunostomy Guy defects were closed. 4. Gastrojejunostomy created using 21 mm Orvil. 5. Jejunojejunostomy created with 90 mm becky-lumen 6. 75 cm Haydee limb performed to minimize tension of gastrojejunal anastomosis 7. Severe adhesions along the gastric cardia and hiatus from previous transendoscopic fundoplasty. 8. Severe peritoneal adhesions epigastrium and bilateral upper abdomen from previous open cholecystectomy. 9. Reinforcement of gastrojejunostomy at the 12:00, 9:00 and 3 o'clock position 10. Placement of #19 round Geoffrey-Rosario drain anterior to the gastrojejunal anastomosis secondary to contaminated case. 11. Antibiotics will be continued beyond 24 hours secondary to contamination.
== END 2016-07-16 15:20 | disposition home health service (06) | DRG 620 ==
LOC: 2ORWHC 07:33 → 3SUR 14:10
PROVIDERS: ADMIT Surgery Plastic and Reconstructive Surgery; ATTEND Surgery Plastic and Reconstructive Surgery
PROC: 0D164ZA Bypass Stomach to Jejunum, Percutaneous Endoscopic Approach (ICD-10-PCS; principal; 2016-07-14 08:45)
PROC: 0DNS4ZZ (ICD-10-PCS; principal; 2016-07-14 08:45)
PROC: 0DN64ZZ Release Stomach, Percutaneous Endoscopic Approach (ICD-10-PCS; principal; 2016-07-14 08:45)
PROC: 0WQF4ZZ Repair Abdominal Wall, Percutaneous Endoscopic Approach (ICD-10-PCS; principal; 2016-07-14 08:45)
DX: E66.01 Morbid (severe) obesity due to excess calories (principal); K43.0 Incisional hernia with obstruction, without gangrene; I11.9 Hypertensive heart disease without heart failure; Z68.35 Body mass index [BMI] 35.0-35.9, adult; J44.9 Chronic obstructive pulmonary disease, unspecified; F32.9 Major depressive disorder, single episode, unspecified; F43.10 Post-traumatic stress disorder, unspecified; G47.33 Obstructive sleep apnea (adult) (pediatric); J45.909 Unspecified asthma, uncomplicated; K21.0 Gastro-esophageal reflux disease with esophagitis; K22.70 Barrett's esophagus without dysplasia; K44.9 Diaphragmatic hernia without obstruction or gangrene; K66.0 Peritoneal adhesions (postprocedural) (postinfection); M16.0 Bilateral primary osteoarthritis of hip; M17.0 Bilateral primary osteoarthritis of knee; M47.9 Spondylosis, unspecified; M79.3 Panniculitis, unspecified; Z79.82 Long term (current) use of aspirin; Z79.899 Other long term (current) drug therapy; Z88.0 Allergy status to penicillin
CPT/HCPCS: 80051; 82310; 82565; 83735; 84100; 84520; 85025; 92950; 94640; 94760

== ENCOUNTER → 2016-07-21 | Outpatient (CLI) | payer MEDICARE, BC ==
[2016-07-21 10:49] VITALS: BP 172/89; PULSE 86; RESP 16; TEMP 98.4; BMI 36.8
[2016-07-21 12:39] LABS: CH 29.6; CHCM 32.8; HCT 37.5 % (34.0-46.0); HDW 2.83; HGB 12.1 gm/dL (11.4-16.0); MCH 29.5 pg (25.0-35.0); MCHC 32.4 g/dL (31.0-37.0); MCV 90.9 fL (80.0-100.0); Mean Platelet Volume 7.7; RBC 4.12 m/uL (3.80-5.40); RDW 13.6 % (11.5-15.5); WBC 8.7 k/uL (3.8-10.6)
[2016-07-21 12:46] LABS: ALT 42 U/L (9-52); AST 31 U/L (14-36); Alkaline Phosphatase 77 U/L (38-126); Anion Gap 13 mmol/L; Blood Urea Nitrogen 21 mg/dL (7-17); Calcium 9.5 mg/dL (8.4-10.2); Carbon Dioxide 24 mmol/L (22-30); Chloride 106 mmol/L (98-107); Glucose 97 mg/dL (74-99); Non-African American GFR(MDRD) >60 (>60 ml/min/1.73 sqM); Potassium 4.1 mmol/L (3.5-5.1); Sodium 143 mmol/L (137-145); Total Bilirubin 0.5 mg/dL (0.2-1.3); Total Protein 6.8 g/dL (6.3-8.2)
--- NOTE | 2016-08-20 23:09 | P.PN ---
Progress Note - Text DATE OF SERVICE: 07/21/2016 CHIEF COMPLAINT: Follow-up gastric bypass. HISTORY OF PRESENT ILLNESS: Claudette Al is a 65-year-old female status post Haydee-en-Y gastric bypass on 07/14/2016. She is now 1 week out from her procedure. She reports tolerating liquids. She denies any fevers or chills. She reports generalized fatigue. She does have a THEODORA drain which has been primarily serosanguineous. Now she presents for further evaluation and management. She reports complete resolution of her gastroesophageal reflux disease which had been present prior to her procedure. At her height of 5 feet and 1/4 inch, her ideal body weight is 127 pounds. Her highest weight is 210 pounds. Today she comes in weighing 190 pounds. She has already lost 20 pounds. Percent excess weight loss is 24%. Body mass index is reduced from 40.8 down to 36.9. PHYSICAL EXAM: VITAL SIGNS: 98.4, 86, 16, 172/89; 5 feet and 1/4 inch, 190 pounds. Body mass index 36.9. ABDOMEN: Soft, nondistended, nontender. JPs are serosanguineous. No signs of cellulitis or infection. THEODORA drain was discontinued. [place] drain was also discontinued. MUSCULOSKELETAL: No clubbing, cyanosis, or edema. GENERAL: Well-developed, pleasant female in no acute distress. HEENT: No scleral icterus. Extraocular movements grossly intact. Moist buccal mucosa. NECK: Supple without lymphadenopathy. CHEST: Nonlabored respirations. Equal bilateral excursions. CARDIOVASCULAR: Regular rate and rhythm. NEURO: No focal or lateralizing signs. Cranial nerves II to XII grossly intact. PSYCH: Appropriate affect. Alert and oriented to person, place, and time. ASSESSMENT: 1. Morbid obesity due to excess calories. 2. Body mass index reduced from 40.8 down to 36.9. 3. History of diffuse abdominal pain, now resolved. 4. Osteoarthritis of bilateral hips. 5. Osteoarthritis of bilateral knees. 6. Gastroesophageal reflux disease with history of Faye's esophagus. 7. Diaphragmatic hiatal hernia. 8. Essential hypertension. 9. Right upper quadrant abdominal pain, resolved. 10. Panniculitis. 11. History of depression without suicidal ideation. 12. Hypertensive heart disease. 13. Chronic obstructive pulmonary disease. 14. Obstructive sleep apnea. 15. Depression. 16. Osteoarthritis of lower back. 17. Dietary surveillance and counseling. 18. Status post Haydee-en-Y gastric bypass. 19. History of gastroesophageal reflux disease, now resolved. PLAN: 1. I recommend CBC including comprehensive metabolic panel. 2. She will now advance to her protein shakes. 3. She does report fatigue and this may reflect anemia. 4. I also recommend follow up with the bariatric dietitian regarding close observation and post bariatric diet. ADDENDUM: Bariatric labs were reviewed, demonstrating hemoglobin was normal at 12.1. White blood cell count was normal at 8.7. Electrolytes were within normal limits. BUN was slightly elevated 21 consistent with dehydration. Recommend increased fluids.
== END | disposition home or self-care (01) ==
LOC: BARWHC3 10:25
PROVIDERS: ATTEND Surgery Plastic and Reconstructive Surgery
DX: Z48.815 Encounter for surgical aftercare following surgery on the digestive system (principal); Z71.3 Dietary counseling and surveillance; E66.01 Morbid (severe) obesity due to excess calories; Z68.36 Body mass index [BMI] 36.0-36.9, adult
CPT/HCPCS: 80053; 85027; 97803; G0463; 99211

== ENCOUNTER → 2016-07-30 | Outpatient (CLI) | payer MEDICARE, BC ==
[~2016-07-30] MED LIST changes: -ACETAMINOPHEN IV (For NPO) 1,000 MG in EMPTY BAG 1 BAG IVPB ONE; -CHLORHEXIDINE GLUCONATE 15 ML CUP MUCOUS MEM ONE; -CLINDAMYCIN 900 MG in DEXTROSE 5% IN WATER 50 ML IVPB ONE; -DEXAMETHASONE SOD PHOSPHATE 10 MG/ML 1 ML VIAL IV ONE; -ENOXAPARIN 40 MG/0.4 ML SYRINGE SQ STA; -LIDOCAINE 1% 20 ML VIAL (10MG/ML) FOR IV START INTRADERMA PRN; -ONDANSETRON 4 MG/2 ML VIAL IVP ONE; +ONDANSETRON 4 MG/2 ML VIAL IVP PRN; -PANTOPRAZOLE 40 MG/10 ML VIAL IV STA; +SCOPOLAMINE 1.5MG/72HR PATCH TRANSDERM STA; +SODIUM CHLORIDE 0.9% 500 ML IV ONE
--- NOTE | 2016-07-30 15:36 | P.PN ---
Subjective Principal diagnosis: Dehydration She has intractable nausea and vomiting Assessment and Plan (1) Dehydration Status: Acute (2) Intractable nausea and vomiting Status: Acute Plan: 1. IV fluid hydration 2. CT obtained
[2016-07-30 15:58] VITALS: RESP 16; TEMP 98.2
[2016-07-30 16:15] VITALS: BP 150/68; PULSE 80
== END | disposition home or self-care (01) ==
LOC: PROCWHC3 15:23
PROVIDERS: ATTEND Surgery Plastic and Reconstructive Surgery
DX: E86.0 Dehydration (principal); R11.2 Nausea with vomiting, unspecified
CPT/HCPCS: 96361; 96374; J2405

== ENCOUNTER → 2016-07-30 | Outpatient (CLI) | payer MEDICARE, BC ==
[2016-07-30 14:35] VITALS: BP 124/57; PULSE 97; TEMP 98; BMI 35.4
[2016-07-30 15:00] LABS: CH 29.5; CHCM 32.3; HCT 38.9 % (34.0-46.0); HDW 2.96; HGB 12.6 gm/dL (11.4-16.0); Hypochromasia Slight; MCH 29.8 pg (25.0-35.0); MCHC 32.4 g/dL (31.0-37.0); MCV 91.8 fL (80.0-100.0); Mean Platelet Volume 8.4; RBC 4.24 m/uL (3.80-5.40); RDW 13.6 % (11.5-15.5); WBC 6.6 k/uL (3.8-10.6)
--- NOTE | 2016-07-30 15:32 | CT ---
EXAMINATION TYPE: CT abdomen wo con DATE OF EXAM: 07/30/2016 3:14 PM COMPARISON: Previous study dated 05/15/2016. HISTORY: Pt states of vomiting today, hx of gastric bypass x2 weeks ago. CT DLP: 741.2 mGycm Automated exposure control for dose reduction was used. TECHNIQUE: Helical acquisition of images was performed from the lung bases through the top of iliac crest to include entire abdomen. CONTRAST: Performed with Oral Contrast and without IV contrast. FINDINGS: Visualized portions of the lungs are clear. There is no pleural or pericardial fluid. The h eart is not enlarged. There has been a previous gastric stapling. There is prominence of the distal esophagus. The gallbladder is not identified. The liver and spleen appear normal. Both adrenal glands appear normal. There is no evidence of hydronephrosis or nephrolithiasis. There is atrophic change involving the pancreas. There is no significant retroperitoneal or iliac adenopathy. Incomplete visualization of the uterus shows no definite abnormality. The ovaries are not visualized with certainty. There are scattered diverticula within the sigmoid colon. There is no radiographic evidence of divert iculitis. There is some fatty infiltration of the ascending colon. The remainder the colon is collaps ed. This makes it difficult to assess wall thickness. There is been a previous small bowel resection. There is no free fluid and no free air identified. There is complete atrophy of the right-sided rectus muscle. There is induration numerous locations subcutaneously in the anterior abdominal wall as well as some induration of the mesenteric fat below this. This was not present previously. There is degenerative disc disease and hypertrophic spondylosis within the lower lumbar spine as well as the lower dorsal spine. IMPRESSION: 1. POSTSURGICAL CHANGE. 2. SCATTERED DIVERTICULA WITHIN THE SIGMOID COLON WITHOUT RADIOGRAPHIC EVIDENCE OF DIVERTICULITIS. 3. FATTY INFILTRATION OF THE ASCENDING COLON WITH COLLAPSE OF THE REMAINDER OF THE COLON. THIS CAN BE SEEN IN INFLAMMATORY BOWEL DISEASE. PLEASE CORRELATE CLINICALLY TO EXCLUDE COLITIS. 4. ATROPHY OF THE RIGHT RECTUS MUSCLE. 5. INDURATION IN MULTIPLE SPOTS SUBCUTANEOUSLY OVER THE ANTERIOR ABDOMINAL WALL WELL WITHIN THE ANTERIOR MESENTERY. NO DEFINITE MESENTERIC ADENOPATHY IS SEEN. I AM UNCERTAIN TO THE ETIOLOGY OF THIS FINDING. 6. MILD DEGENERATIVE CHANGES WITHIN THE SPINE.
[2016-07-30 16:08] LABS: ALT 35 U/L (9-52); AST 34 U/L (14-36); Alkaline Phosphatase 84 U/L (38-126); Anion Gap 20 mmol/L; Blood Urea Nitrogen 20 mg/dL (7-17); Calcium 9.9 mg/dL (8.4-10.2); Carbon Dioxide 18 mmol/L (22-30); Chloride 107 mmol/L (98-107); Glucose 98 mg/dL (74-99); Non-African American GFR(MDRD) >60 (>60 ml/min/1.73 sqM); Potassium 3.7 mmol/L (3.5-5.1); Sodium 145 mmol/L (137-145); Total Bilirubin 0.9 mg/dL (0.2-1.3); Total Protein 7.7 g/dL (6.3-8.2)
--- NOTE | 2016-09-14 21:36 | P.PN ---
Progress Note - Text DATE OF SERVICE: 07/30/2016. CHIEF COMPLAINT: Follow-up gastric bypass. HISTORY OF PRESENT ILLNESS: Claudette Al is a 65-year-old female who is status post Haydee-en-Y gastric bypass on 07/14/2016. She is a little bit more than 2 weeks out. Since her last visit a week ago she was doing well; however today she comes in with acute chest pressure after having a popsicle. She reports eating solid chicken which is too early for her procedure. As a result of her discomfort now she was brought in. At her height of 5 feet and one quarter inch, her ideal body weight is 127 pounds. Initial weight was 210 pounds. Today she comes in weighing 183 pounds. She has lost 27 pounds in approximately one month. Percent excess weight loss is 63%. Body mass is reduced from 40.8 down to 35.5. She is approximately 56 pounds overweight. PHYSICAL EXAM: VITAL SIGNS: 98.0, 97, 16, 124/57. ABDOMEN: Soft, mild tenderness along the epigastrium. No palpable incisional hernias. No signs of cellulitis and infection of the abdomen. GENERAL: Well-developed, pleasant female in no acute distress. HEENT: No scleral icterus. Extraocular movements grossly intact. Moist buccal mucosa. NECK: Supple without lymphadenopathy. CHEST: Nonlabored respirations. Equal bilateral excursions. CARDIOVASCULAR: Regular rate and rhythm. MUSCULOSKELETAL: No clubbing, cyanosis, or edema. NEURO: No focal or lateralizing signs. Cranial nerves II to XII grossly intact. PSYCH: Appropriate affect. Alert and oriented to person, place, and time. LABS: Pending at this time. ASSESSMENT: 1. Acute epigastric abdominal pain. 2. Bariatric noncompliance. 3. Status post Haydee-En-Y gastric bypass. 4. History of morbid obesity. 5. Body mass index is reduced from 40.8 down to 35.5. PLAN: 1. As she comes in with acute discomfort recommend immediate bariatric metabolic panel. 2. Also recommend immediate CT of the pelvis particularly as she reports epigastric abdominal pain. 3. Also recommend IV fluid hydration as she reports troubles with oral intake. 4. Upon re-evaluation her epigastric abdominal pain had improved. ADDENDUM: CT of the abdomen and pelvis was reviewed, demonstrating no evidence of gastric leak. Postsurgical changes were consistent with a Haydee-en-Y gastric bypass. Evidence of sigmoid diverticulosis was also identified. LABS: White count was normal at 6.6. Hemoglobin was normal at 12.6. Carbon dioxide was low at 18. BUN was elevated at 20. We will continue IV fluid hydration including bariatric reeducation of her diet. Recommend liquid diet puree diet in the interim with close follow up.
== END | disposition home or self-care (01) ==
LOC: BARWHC3 13:27
PROVIDERS: ATTEND Surgery Plastic and Reconstructive Surgery
DX: Z48.815 Encounter for surgical aftercare following surgery on the digestive system (principal); R10.84 Generalized abdominal pain; R11.2 Nausea with vomiting, unspecified; R10.13 Epigastric pain; Z98.84 Bariatric surgery status; K57.90 Diverticulosis of intestine, part unspecified, without perforation or abscess without bleeding; K63.89 Other specified diseases of intestine; M62.58 Muscle wasting and atrophy, not elsewhere classified, other site; G31.89 Other specified degenerative diseases of nervous system; E66.01 Morbid (severe) obesity due to excess calories
CPT/HCPCS: 80053; 85027; 74150; G0463; 96361; 96374; 99211

== ENCOUNTER → 2016-08-13 | Outpatient (CLI) | payer MEDICARE, BC ==
[~2016-08-13] MED LIST changes: +ONDANSETRON 4 MG/2 ML VIAL IVP ONE; -ONDANSETRON 4 MG/2 ML VIAL IVP PRN; +SCOPOLAMINE 1.5MG/72HR PATCH TRANSDERM ONE; -SCOPOLAMINE 1.5MG/72HR PATCH TRANSDERM STA; +SODIUM CHLORIDE 0.9% 1,000 ML IV SCH; +SODIUM CHLORIDE 0.9% 250 ML in EMPTY BAG 1 BAG IV PRN; -SODIUM CHLORIDE 0.9% 500 ML IV ONE; +SODIUM CHLORIDE 0.9% 500 ML in EMPTY BAG 1 BAG IV PRN
[2016-08-13 14:50] VITALS: BP 180/76; PULSE 93; RESP 18; TEMP 97.7
[2016-08-13 15:06] VITALS: BMI 34.4
--- NOTE | 2016-12-03 03:18 | P.PN ---
Progress Note - Text DATE OF SERVICE: 08/13/2016 CHIEF COMPLAINT: Follow up gastric bypass. HISTORY OF PRESENT ILLNESS: Claudette Al is a 66-year-old female who is status post Haydee-en-Y gastric bypass after revision from Tere fundoplasty on 07/14/2016. She is a little over a month out. She comes in today noticing that she is having trouble swallowing pills. She comes in with dehydration and anxiety. At her height of 5-1/4 inches, her ideal body weight is a 127 pound. Her highest weight was 210 pounds. Today she comes in weighing 178 pounds. She has lost 32 pounds. Percent excess weight loss is 39%. Body mass index is reduced from 40.8 down to 34.5. Weight loss since her last visit is already 12 pounds. PHYSICAL EXAM: VITAL SIGNS: 97.7, 93, 18, 180/76. ABDOMEN: Soft, nondistended. Mild focal tenderness along the epigastrium. All wounds completely granulated. GENERAL: Well-developed, pleasant female in no acute distress. HEENT: No scleral icterus. Extraocular movements grossly intact. Moist buccal mucosa. NECK: Supple without lymphadenopathy. CHEST: Nonlabored respirations. Equal bilateral excursions. CARDIOVASCULAR: Regular rate and rhythm. MUSCULOSKELETAL: No clubbing, cyanosis, or edema. NEURO: No focal or lateralizing signs. Cranial nerves II to XII grossly intact. PSYCH: Appropriate affect. Alert and oriented to person, place, and time. ASSESSMENT: 1. Morbid obesity due to excess calories. 2. Body mass index reduced from 48.8 down to 34.5. 3. Status post Haydee-en-Y gastric bypass. 4. Previous history of Tere fundoplasty. 5. Gastroesophageal reflux disease, improved. 6. Dysphagia to solid foods. PLAN: 1. Recommend proceeding with an upper endoscopy with balloon dilatation. 2. Also recommend IV fluid hydration in the interim. 3. Recommend follow-up post procedure at [facility].
== END | disposition home or self-care (01) ==
LOC: BARWHC3 13:35
PROVIDERS: ATTEND Surgery Plastic and Reconstructive Surgery
DX: E86.0 Dehydration (principal); E66.01 Morbid (severe) obesity due to excess calories; Z68.34 Body mass index [BMI] 34.0-34.9, adult; Z71.3 Dietary counseling and surveillance; R13.0 Aphagia; R11.2 Nausea with vomiting, unspecified
CPT/HCPCS: 97803; 96360; 96375; J2405; G0463; 99211

== ENCOUNTER 2016-08-14 09:06 | Day surgery (SDC) | payer MEDICARE, BC ==
--- NOTE | 2016-08-14 09:07 | P.GSHP ---
History of Present Illness H&P Date: 08/14/16 CHIEF COMPLAINT: Dysphagia HISTORY OF PRESENT ILLNESS: The patient is a 65-year-old female who presents reports dysphagia and epigastric abdominal pain. Upper endoscopy was offered for further evaluation and management. PAST MEDICAL HISTORY: Please see list. PAST SURGICAL HISTORY: Please see list. MEDICATIONS: Please see list. ALLERGIES: Please see list. SOCIAL HISTORY: No illicit drug use FAMILY HISTORY: No reports of Crohn disease or ulcerative colitis. REVIEW OF ORGAN SYSTEMS: CONSTITUTIONAL: No reports of fevers or chills. GI: Denies any blood in stools or constipation. PHYSICAL EXAM: VITAL SIGNS: Stable GENERAL: Well-developed and pleasant in no acute distress. HEENT: No scleral icterus. Extraocular movements grossly intact. Moist buccal mucosa. NECK: Supple without lymphadenopathy. CHEST: Unlabored respirations. Equal bilateral excursions. CARDIOVASCULAR: Regular rate and rhythm. Distal 2+ pulses. ABDOMEN: Soft, nondistended. MUSCULOSKELETAL: No clubbing, cyanosis, or edema. ASSESSMENT: 1. Dysphagia. 2. Epigastric abdominal pain PLAN: 1. Recommend proceeding with an upper endoscopy with possible dilatation. Past Medical History Past Medical History: Asthma, Osteoarthritis (OA) Additional Past Medical History / Comment(s): degenerative disc desease, spinal stenosis, hiatel hernia History of Any Multi-Drug Resistant Organisms: None Reported Past Surgical History: Back Surgery, Bariatric Surgery, Cholecystectomy Additional Past Surgical History / Comment(s): Barrets esophagus surgery 2008 at [facility] in [facility]. RY 07/14/16 gastric bypass 07-14-16 Past Anesthesia/Blood Transfusion Reactions: No Reported Reaction, Postoperative Nausea & Vomiting (PONV) Additional Past Anesthesia/Blood Transfusion Reaction / Comment(s): no problems with prior blood transfusion. Past Psychological History: Depression, PTSD Smoking Status: Never smoker Past Alcohol Use History: None Reported Past Drug Use History: None Reported - Past Family History Father Family Medical History: Cancer Medications and Allergies Home Medications Medication Instructions Recorded Confirmed Type Beclomethasone Dipropionate [Qvar 2 puff INHALATION RT-BID 04/25/15 08/13/16 History 80 mcg/puff] DULoxetine HCL [Cymbalta] 60 mg PO QAM 04/25/15 08/13/16 History Levalbuterol HCl [Xopenex 1.25 mg INHALATION RT-BID 04/25/15 08/13/16 History Concentrate] Allergies Allergy/AdvReac Type Severity Reaction Status Date / Time Penicillins Allergy Dyspnea Verified 08/13/16 15:11 hydrocodone [From [place]] AdvReac Nausea Verified 08/13/16 15:11
[2016-08-14] MEDS ORDERED: LACTATED RINGERS 1,000 ML IV SCH (09:15)
[2016-08-14] MEDS ORDERED: LIDOCAINE 1% 20 ML VIAL (10MG/ML) FOR IV START INTRADERMA PRN (09:15)
[2016-08-14] MEDS ORDERED: LACTATED RINGERS 1,000 ML IV ONE (09:20)
[2016-08-14 09:23] VITALS: TEMP 98
[2016-08-14] MEDS ORDERED: LIDOCAINE 1% 20 ML VIAL (10MG/ML) FOR IV START INTRADERMA ONE (09:29)
[2016-08-14] MEDS ORDERED: ONDANSETRON 4 MG/2 ML VIAL IVP ONE (09:44)
[2016-08-14] MEDS ORDERED: LIDOCAINE 1% INJ 10MG/ML (20 ML MDV) ONE (09:59)
[2016-08-14] MEDS ORDERED: PROPOFOL 10 MG/ML 20 ML VIAL IV ONE (09:59)
[2016-08-14 10:48] VITALS: PULSE 63
[2016-08-14 11:01] VITALS: BP 149/82; RESP 16
--- NOTE | 2016-08-15 08:23 | P.PCN ---
Date of Procedure: 08/14/16 Description of Procedure: PREOPERATIVE DIAGNOSIS: Dysphagia. Nausea with vomiting. Epigastric abdominal pain. POSTOPERATIVE DIAGNOSIS: Dysphagia. Nausea with vomiting. Epigastric abdominal pain. 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 OPERATION: Esophagogastrojejunoscopy with balloon dilatation from 2 mm to 9 mm. SURGEON: Nancy Gomez MD ANESTHESIA: MAC. INDICATIONS: The patient is a 65-year-old female who presents with a history of dysphagia, gastric bypass including epigastric abdominal pain, nausea and vomiting. Benefits and risks of the procedure were described. Informed consent was obtained. DESCRIPTION: The patient was brought into the endoscopy suite and laid in the left lateral decubitus position. After a timeout was confirmed, the procedure was initiated. An Olympus gastroscope was passed along the posterior oropharynx down to the distal esophagus where the squamocolumnar junction was unremarkable. The gastric pouch was entered. A gastrojejunal stricture of 2 mm was found as the pediatric gastroscope is 8.6 mm in size. A [employer] balloon dilator was placed through the scope and narrowly through this stricture. Careful stepwise dilatation from 8 mm to 9 mm was performed. Final insufflation up to 9 mm was performed with a total of 2 minute. The scope was advanced up to 60 cm from the incisors into the Haydee limb. The mucosa of the gastrojejunal anastomosis was intact. No full-thickness injury was encountered. No gastrojejunal ulcers were identified. The GI tract was desufflated. The patient tolerated the procedure well. FINDINGS: Gastrojejunal stricture of 2 mm. Balloon dilatation to 9 mm. Gastric pouch, 3 cm. No acute or chronic gastrojejunal ulceration identified. RECOMMENDATIONS: Repeat upper endoscopy with balloon dilatation in 2 weeks. Liquid diet in the interim. Continue with omeprazole for pouch care.
== END 2016-08-14 11:35 | disposition home or self-care (01) ==
LOC: ORWHC2ENDO 09:06
PROVIDERS: ATTEND Surgery Plastic and Reconstructive Surgery
DX: K31.89 Other diseases of stomach and duodenum (principal); J45.909 Unspecified asthma, uncomplicated; Z79.51 Long term (current) use of inhaled steroids; Z79.899 Other long term (current) drug therapy
CPT/HCPCS: 43245; J2405; J2001; J2704; C1726; 43249

== ENCOUNTER 2016-08-28 09:24 | Day surgery (SDC) | payer MEDICARE, BC ==
[2016-08-25 14:21] VITALS: BMI 30.6
[~2016-08-28 09:24] MED LIST changes: +LACTATED RINGERS 1,000 ML IV SCH; +LIDOCAINE 1% 20 ML VIAL (10MG/ML) FOR IV START INTRADERMA PRN; -ONDANSETRON 4 MG/2 ML VIAL IVP ONE; -SCOPOLAMINE 1.5MG/72HR PATCH TRANSDERM ONE; -SODIUM CHLORIDE 0.9% 1,000 ML IV SCH; -SODIUM CHLORIDE 0.9% 250 ML in EMPTY BAG 1 BAG IV PRN; -SODIUM CHLORIDE 0.9% 500 ML in EMPTY BAG 1 BAG IV PRN
[2016-08-28 09:48] VITALS: RESP 16; TEMP 97.4
[2016-08-28] MEDS ORDERED: LIDOCAINE 1% 20 ML VIAL (10MG/ML) FOR IV START INTRADERMA ONE (10:05)
[2016-08-28] MEDS ORDERED: LIDOCAINE 1% INJ 10MG/ML (20 ML MDV) ONE (10:25)
[2016-08-28] MEDS ORDERED: PROPOFOL 10 MG/ML 20 ML VIAL IV ONE (10:25)
--- NOTE | 2016-08-28 10:27 | P.GSHP ---
History of Present Illness H&P Date: 08/28/16 CHIEF COMPLAINT: Dysphagia HISTORY OF PRESENT ILLNESS: The patient is a 65-year-old female who presents reports dysphagia from gastric stenosis. Upper endoscopy was offered for further evaluation and management. PAST MEDICAL HISTORY: Please see list. PAST SURGICAL HISTORY: Please see list. MEDICATIONS: Please see list. ALLERGIES: Please see list. SOCIAL HISTORY: No illicit drug use FAMILY HISTORY: No reports of Crohn disease or ulcerative colitis. REVIEW OF ORGAN SYSTEMS: CONSTITUTIONAL: No reports of fevers or chills. GI: Denies any blood in stools or constipation. PHYSICAL EXAM: VITAL SIGNS: Stable GENERAL: Well-developed and pleasant in no acute distress. HEENT: No scleral icterus. Extraocular movements grossly intact. Moist buccal mucosa. NECK: Supple without lymphadenopathy. CHEST: Unlabored respirations. Equal bilateral excursions. CARDIOVASCULAR: Regular rate and rhythm. Distal 2+ pulses. ABDOMEN: Soft, nondistended. MUSCULOSKELETAL: No clubbing, cyanosis, or edema. ASSESSMENT: 1. Dysphagia. 2. Gastric Stenosis. PLAN: 1. Recommend proceeding with an upper endoscopy with balloon dilation. Past Medical History Past Medical History: Asthma, Osteoarthritis (OA) Additional Past Medical History / Comment(s): states "having difficulty swallowing and keeping things down",degenerative disc desease, spinal stenosis, hiatel hernia History of Any Multi-Drug Resistant Organisms: None Reported Past Surgical History: Back Surgery, Bariatric Surgery, Cholecystectomy Additional Past Surgical History / Comment(s): Barrets esophagus surgery 2008 at [facility] in [facility]. RY 07/14/16 gastric bypass 07-14-16 Past Anesthesia/Blood Transfusion Reactions: No Reported Reaction, Postoperative Nausea & Vomiting (PONV) Additional Past Anesthesia/Blood Transfusion Reaction / Comment(s): no problems with prior blood transfusion. Past Psychological History: Depression, PTSD Smoking Status: Never smoker Past Alcohol Use History: None Reported Past Drug Use History: None Reported - Past Family History Father Family Medical History: Cancer Medications and Allergies Home Medications Medication Instructions Recorded Confirmed Type Beclomethasone Dipropionate [Qvar 2 puff INHALATION RT-BID 04/25/15 08/28/16 History 80 mcg/puff] DULoxetine HCL [Cymbalta] 60 mg PO QAM 04/25/15 08/28/16 History Levalbuterol HCl [Xopenex 1.25 mg INHALATION RT-BID 04/25/15 08/28/16 History Concentrate] Gabapentin [Gabapentin] 100 mg PO QAM 08/25/16 08/28/16 History Gabapentin [Gabapentin] 300 mg PO HS 08/25/16 08/28/16 History Multivitamins, Thera [Multivitamin 1 tab PO DAILY 08/25/16 08/28/16 History (formulary)] Omeprazole 40 mg PO QAM 08/25/16 08/28/16 History Pantoprazole Sodium [Protonix] 40 mg PO QAM 08/25/16 08/28/16 History Allergies Allergy/AdvReac Type Severity Reaction Status Date / Time Penicillins Allergy Dyspnea,hiv Verified 08/28/16 09:42 es hydrocodone [From [place]] AdvReac Nausea Verified 08/28/16 09:42 Surgical - Exam Vital Signs Temp Pulse Resp BP Pulse Ox 97.4 F L 79 16 136/75 98 08/28/16 09:47 08/28/16 09:47 08/28/16 09:47 08/28/16 09:47 08/28/16 09:47
--- NOTE | 2016-08-28 10:41 | P.PCN ---
Date of Procedure: 08/28/16 Description of Procedure: PREOPERATIVE DIAGNOSIS: Dysphagia. Gastric stenosis. Gastrojejunal stricture. POSTOPERATIVE DIAGNOSIS: Dysphagia. Gastric stenosis. Gastrojejunal stricture. OPERATION: Esophagogastrojejunoscopy with balloon dilatation from 6 mm to 9 mm. SURGEON: Nancy Gomez MD ANESTHESIA: MAC. INDICATIONS: The patient is a 65-year-old female who presents with a history of dysphagia and gastrojejunal stricture. Benefits and risks of the procedure were described. Informed consent was obtained. DESCRIPTION: The patient was brought into the endoscopy suite and laid in the left lateral decubitus position. After a timeout was confirmed, the procedure was initiated. An Olympus gastroscope was passed along the posterior oropharynx down to the distal esophagus where the squamocolumnar junction was unremarkable. The gastric pouch was entered. A gastrojejunal stricture of 6 mm was found as the pediatric gastroscope is 8.6 mm in size. A Helpr balloon dilator was placed through the scope and narrowly through this stricture. Careful stepwise dilatation from 8 mm to 9 mm was performed. Final insufflation up to 9 mm was performed with a total of 2 minute. The scope was advanced up to 60 cm from the incisors into the Haydee limb. The mucosa of the gastrojejunal anastomosis was intact. No full-thickness injury was encountered. No gastrojejunal ulcers were identified. The GI tract was desufflated. The patient tolerated the procedure well. FINDINGS: Gastrojejunal stricture of 6 mm. Balloon dilatation to 9 mm. Gastric pouch, 3 cm. No acute or chronic gastrojejunal ulceration identified. RECOMMENDATIONS: Upper endoscopy as needed. Continue with omeprazole for pouch care. Plan - Discharge Summary Discharge Medication List Beclomethasone Dipropionate [Qvar 80 mcg/puff] 2 puff INHALATION RT-BID [History] DULoxetine HCL [Cymbalta] 60 mg PO QAM 04/25/15 [History] Levalbuterol HCl [Xopenex Concentrate] 1.25 mg INHALATION RT-BID 04/25/15 [ History] Gabapentin [Gabapentin] 100 mg PO QAM 08/25/16 [History] Gabapentin [Gabapentin] 300 mg PO HS 08/25/16 [History] Multivitamins, Thera [Multivitamin (formulary)] 1 tab PO DAILY 08/25/16 [History ] Omeprazole 40 mg PO QAM 08/25/16 [History] Pantoprazole Sodium [Protonix] 40 mg PO QAM 08/25/16 [History]
[2016-08-28 10:46] VITALS: BP 125/60
[2016-08-28 10:55] VITALS: PULSE 69
== END 2016-08-28 11:29 | disposition home or self-care (01) ==
LOC: ORWHC2ENDO 09:24
PROVIDERS: ATTEND Surgery Plastic and Reconstructive Surgery
DX: K31.89 Other diseases of stomach and duodenum (principal); K56.69 Other intestinal obstruction; K21.9 Gastro-esophageal reflux disease without esophagitis; J45.909 Unspecified asthma, uncomplicated; F32.9 Major depressive disorder, single episode, unspecified; M19.90 Unspecified osteoarthritis, unspecified site; Z88.5 Allergy status to narcotic agent; Z88.0 Allergy status to penicillin; Z79.51 Long term (current) use of inhaled steroids; Z79.899 Other long term (current) drug therapy; Z98.84 Bariatric surgery status
CPT/HCPCS: 43245; J2001; J2704; C1726; 43249

== ENCOUNTER 2016-10-10 07:53 | Day surgery (SDC) | payer MEDICARE, BC ==
[2016-10-08 16:47] VITALS: BMI 29.2
--- NOTE | 2016-10-10 07:46 | P.GSHP ---
History of Present Illness H&P Date: 10/10/16 CHIEF COMPLAINT: GERD HISTORY OF PRESENT ILLNESS: The patient is a 65-year-old female who presents reports gastroesophageal reflux disease. Upper endoscopy was offered for further evaluation and management. PAST MEDICAL HISTORY: Please see list. PAST SURGICAL HISTORY: Please see list. MEDICATIONS: Please see list. ALLERGIES: Please see list. SOCIAL HISTORY: No illicit drug use FAMILY HISTORY: No reports of Crohn disease or ulcerative colitis. REVIEW OF ORGAN SYSTEMS: CONSTITUTIONAL: No reports of fevers or chills. GI: Denies any blood in stools or constipation. PHYSICAL EXAM: VITAL SIGNS: Stable GENERAL: Well-developed and pleasant in no acute distress. HEENT: No scleral icterus. Extraocular movements grossly intact. Moist buccal mucosa. NECK: Supple without lymphadenopathy. CHEST: Unlabored respirations. Equal bilateral excursions. CARDIOVASCULAR: Regular rate and rhythm. Distal 2+ pulses. ABDOMEN: Soft, nondistended. MUSCULOSKELETAL: No clubbing, cyanosis, or edema. ASSESSMENT: 1. Gastroesophageal reflux disease PLAN: 1. Recommend proceeding with an upper endoscopy Past Medical History Past Medical History: Asthma, GERD/Reflux, Osteoarthritis (OA) Additional Past Medical History / Comment(s): dysphagia,degenerative disc desease, spinal stenosis, hiatal hernia History of Any Multi-Drug Resistant Organisms: None Reported Past Surgical History: Back Surgery, Bariatric Surgery, Cholecystectomy Additional Past Surgical History / Comment(s): Barretts esophagus surgery 2008 at [facility] in [facility]. RY gastric bypass 07-14-16 Past Anesthesia/Blood Transfusion Reactions: Postoperative Nausea & Vomiting ( PONV) Additional Past Anesthesia/Blood Transfusion Reaction / Comment(s): no problems with prior blood transfusion. Past Psychological History: Depression, PTSD Smoking Status: Never smoker Past Alcohol Use History: None Reported Past Drug Use History: None Reported - Past Family History Father Family Medical History: Cancer Medications and Allergies Home Medications Medication Instructions Recorded Confirmed Type DULoxetine HCL [Cymbalta] 60 mg PO QAM 04/25/15 10/08/16 History Multivitamins, Thera [Multivitamin 1 tab PO DAILY 08/25/16 10/08/16 History (formulary)] Omeprazole 40 mg PO QAM 08/25/16 10/08/16 History Allergies Allergy/AdvReac Type Severity Reaction Status Date / Time Penicillins Allergy Dyspnea,hiv Verified 10/08/16 16:36 es hydrocodone [From [place]] AdvReac Nausea Verified 10/08/16 16:36
[2016-10-10 08:40] VITALS: RESP 16; TEMP 97.7
[2016-10-10] MEDS ORDERED: PROPOFOL 10 MG/ML 20 ML VIAL IV ONE (09:06)
[2016-10-10] MEDS ORDERED: IV FLUID CONTINUATION 1,000 ML IV ONE (09:26)
--- NOTE | 2016-10-10 09:30 | P.PCN ---
Date of Procedure: 10/10/16 Description of Procedure: PREOPERATIVE DIAGNOSIS: Dysphagia. Nausea with vomiting. Gastrojejunal stricture. POSTOPERATIVE DIAGNOSIS: Dysphagia. Nausea with vomiting. Gastrojejunal stricture. OPERATION: Esophagogastrojejunoscopy with balloon dilatation from 8 to 18 mm. SURGEON: Nancy Gomez MD ANESTHESIA: MAC. INDICATIONS: The patient is a 65-year-old female who presents with a history of dysphagia and gastrojejunal stricture. Benefits and risks of the procedure were described. Informed consent was obtained. DESCRIPTION: The patient was brought into the endoscopy suite and laid in the left lateral decubitus position. After a timeout was confirmed, the procedure was initiated. An Olympus gastroscope was passed along the posterior oropharynx down to the distal esophagus where the squamocolumnar junction was unremarkable. The gastric pouch was entered. A gastrojejunal stricture of 8 mm was found as the pediatric gastroscope was 8.6 mm in size. A [employer] balloon dilator was placed through the scope. Final insufflation up to 18 mm was performed with a total of 2 minutes. The scope was advanced up to 60 cm from the incisors into the [place] limb. The mucosa of the gastrojejunal anastomosis was intact. No full-thickness injury was encountered. The GI tract was desufflated. The patient tolerated the procedure well. FINDINGS: Stricture of approximately 8 mm encountered. No chronic gastrojejunal ulceration encountered. Successful balloon dilatation to 18 mm. Gastric pouch 5 cm. RECOMMENDATIONS: Continue omeprazole of at least 4 weeks.
[2016-10-10 09:59] VITALS: BP 125/74; PULSE 62
== END 2016-10-10 11:06 | disposition home or self-care (01) ==
LOC: ORWHC2ENDO 07:53
PROVIDERS: ATTEND Surgery Plastic and Reconstructive Surgery
DX: K31.89 Other diseases of stomach and duodenum (principal); R13.10 Dysphagia, unspecified; K21.9 Gastro-esophageal reflux disease without esophagitis; Z98.84 Bariatric surgery status; F32.9 Major depressive disorder, single episode, unspecified; F43.10 Post-traumatic stress disorder, unspecified; Z79.899 Other long term (current) drug therapy; Z88.5 Allergy status to narcotic agent; Z88.0 Allergy status to penicillin
CPT/HCPCS: 43245; J2704; C1726; 43249

== ENCOUNTER → 2016-10-16 | Outpatient (CLI) | payer MEDICARE, BC ==
[2016-10-16 09:28] VITALS: BP 166/91; PULSE 59; RESP 16; TEMP 98.1; BMI 31.6
[2016-10-16 11:08] LABS: CH 29.8; CHCM 31.9; HCT 37.9 % (34.0-46.0); HDW 2.81; MCH 29.8 pg (25.0-35.0); MCHC 31.7 g/dL (31.0-37.0); Mean Platelet Volume 7.8; RBC 4.03 m/uL (3.80-5.40); RDW 15.5 % (11.5-15.5); WBC 5.5 k/uL (3.8-10.6)
[2016-10-16 11:23] LABS: Hemoglobin A1C 5.5 % (4.2-6.1)
[2016-10-16 11:31] LABS: Prothrombin Time 10.5 sec (9.0-12.0)
[2016-10-16 11:50] LABS: ALT 24 U/L (9-52); AST 20 U/L (14-36); Alkaline Phosphatase 71 U/L (38-126); Anion Gap 12 mmol/L; Blood Urea Nitrogen 17 mg/dL (7-17); Calcium 9.5 mg/dL (8.4-10.2); Carbon Dioxide 24 mmol/L (22-30); Chloride 108 mmol/L (98-107); Cholesterol 194 mg/dL (<200); Glucose 91 mg/dL (74-99); HDL Cholesterol 66 mg/dL (40-60); Iron 50 ug/dL (37-170); Magnesium 1.8 mg/dL (1.6-2.3); Non-African American GFR(MDRD) >60 (>60 ml/min/1.73 sqM); Phosphorous 3.5 mg/dL (2.5-4.5); Potassium 3.4 mmol/L (3.5-5.1); Sodium 144 mmol/L (137-145); Total Bilirubin 0.6 mg/dL (0.2-1.3); Total Protein 6.6 g/dL (6.3-8.2); Triglycerides 133 mg/dL (<150)
[2016-10-16 12:09] LABS: % Iron Saturation 17.5 % (20-50); Prealbumin 11 mg/dL (18-36); Total Iron Binding Capacity 286 ug/dL (265-497)
[2016-10-16 12:59] LABS: Vitamin B12 702 pg/mL
[2016-10-21 16:40] LABS: Selenium 95 mcg/L (63-160)
--- NOTE | 2016-12-04 13:49 | P.PN ---
Progress Note - Text DATE OF SERVICE: 10/16/2016 CHIEF COMPLAINT: Follow-up revision from Tere to Haydee-en-Y gastric bypass. HISTORY OF PRESENT ILLNESS: Claudette Al is a 66-year-old female who is status post revision to her Haydee-en-Y gastric bypass on 07/14/2016. She is now over 3 months out. She did present with history of dysphagia to solid foods and is now one week out from one week upper endoscopy with balloon dilatation. At her height of 5 feet and 1/4 inch, her ideal body weight is 127 pounds. Her highest weight of 210 pounds. Today she comes in weighing 163 pounds. She lost 47 pounds. He has already achieved 57% excess weight loss in 3 months. Body mass index reduced from 40.8 down to 31.6. She has lost another 20 pounds since her last evaluation within the past 4 months. She reports doing much better since her upper endoscopy with balloon dilatation. She denies any more eructation of burping. Her reflux is now resolved. She does report new onset back pain, including hip pain. She reports overall desire loss of eating. She also reports malodorous flatulence. Her personal goal is to get down to 130 pounds for which she is within 30 pounds of her goal. PAST MEDICAL HISTORY: 1. Morbid obesity. 2. Gastroesophageal reflux disease. 3. Hypertension. 4. Depression. 5. Chronic obstructive pulmonary disease. 6. Osteoarthritis of the lower back. 7. Osteoarthritis of the bilateral hips. 8. History of Faye's esophagus. 9. Posttraumatic stress disorder. PAST SURGICAL HISTORY: 1. Colonoscopy. 2. Upper endoscopy. 3. Lower back surgery. 4. Cholecystectomy. 5. Revision of Tere fundoplasty to Haydee-en-Y gastric bypass. MEDICATIONS: 1. Omeprazole. 2. Multivitamin. 3. Cymbalta. ALLERGIES: PENICILLIN. SOCIAL HISTORY: Lifelong nontobacco user. She is . FAMILY HISTORY: Pertinent for morbid obesity. Also familial history of cancer of unknown type. REVIEW OF SYSTEMS: CONSTITUTIONAL: At her height of 5 feet and 1/4 inch, her ideal body weight is 127 pounds. Her highest weight of 210 pounds. Today she comes in weighing 163 pounds. She lost 47 pounds. He has already achieved 57% excess weight loss in 3 months. Body mass index reduced from 40.8 down to 31.6. She has lost another 20 pounds since her last evaluation within the past 4 months GASTROINTESTINAL: No reports of dumping syndrome. Gastroesophageal reflux disease, resolved. History of Faye's esophagus. HEENT: No troubles with vision or hearing. No reports of recent dysphagia. ENDOCRINE: No reports of thyroid disorders or active diabetes. RESPIRATORY: No recent pneumonia. However, has chronic obstructive pulmonary disease. Also, with sleep apnea. CARDIOVASCULAR: History of hypertension. No recent heart attack. MUSCULOSKELETAL: Osteoarthritis of the lower back. Also osteoarthritis of the bilateral hips secondary to morbid obesity. NEURO: No reports of stroke or seizure disorders. PSYCH: Has depression including posttraumatic stress disorder. No recent psychosis. HEMATOLOGIC: No reports of pulmonary embolisms or DVTs. PHYSICAL EXAM: VITAL SIGNS: 98.1, 59, 16, 156/91, 5 feet and 06/11, 163 pounds. Body mass index of 31.6. ABDOMEN: Soft, nontender, nondistended. All wounds completely granulated. GENERAL: Well-developed, pleasant female in no acute distress. HEENT: No scleral icterus. Extraocular movements grossly intact. Moist buccal mucosa. NECK: Supple without lymphadenopathy. CHEST: Nonlabored respirations. Equal bilateral excursions. CARDIOVASCULAR: Regular rate and rhythm. MUSCULOSKELETAL: No clubbing, cyanosis, or edema. NEURO: No focal or lateralizing signs. Cranial nerves II to XII grossly intact. PSYCH: Appropriate affect. Alert and oriented to person, place, and time. ASSESSMENT: 1. Morbid obesity due to excess calories, now improved. 2. Body mass index reduced from 40.8 down to 31.6. 3. History of diffuse abdominal pain. 4. Osteoarthritis of bilateral hips. 5. Osteoarthritis of bilateral knees. 6. Gastroesophageal reflux disease with history of Faye's esophagus, now resolved. 7. History of gastrojejunal stricture, now improved. 8. Essential hypertension, improved, 9. Right upper quadrant abdominal pain, resolved. 10. Panniculitis. 11. History of depression without suicidal ideation. 12. Hypokalemia. 13. Chronic obstructive pulmonary disease. 14. Obstructive sleep apnea, improved. 15. Depression. 16. Osteoarthritis of lower back. 17. Dietary surveillance and counseling. 18. Vitamin A deficiency. 19. Vitamin D deficiency. 20. Thiamine deficiency. 21. Inadequate protein intake. 22. Iron deficiency. PLAN: 1. Recommend vitamin D supplement at least 5000 units daily, otherwise 50,000 units weekly. 2. She has thiamine deficiency where her symptoms such as numbness and tingling may occur with prolonged deficiency. Recommend correction with thiamine supplement at least 100 mg daily. 3. Recommend vitamin A supplement with vitamin A rich foods such as carrots and cantaloupes. 4. Prealbumin is low at 11 and will benefit from protein intake of over 75 grams daily. 5. Iron saturation is low. Would also recommend iron supplementation. 6. Bariatric metabolic panel demonstrates hypokalemia for which corrective foods such as high potassium rich foods would be of benefit. 7. I have asked her for close follow-up for any time if she difficulty with swallowing. 8. She has complete bariatric metabolic panel as she is now over 3 months out. 9. Upper endoscopy as needed. She will chew foods thoroughly. 10. Recommend follow-up at least 6 months postop of her surgery which will put her in January 2017. 11. Additional supplementation of thiamine including vitamin A and vitamin D was written on her behalf. ADDENDUM: Bariatric metabolic panel was reviewed with hemoglobin normal at 12. Potassium was low at 3.4. Chloride was elevated at 108. Percent iron saturation was low at 17.5. Prealbumin is low at 11. LDL was elevated at 101. HDL elevated at 66. Vitamin A low at 29. Thiamine low at 29. Vitamin D low at 20.1.
== END | disposition home or self-care (01) ==
LOC: BARWHC3 09:06
PROVIDERS: ATTEND Surgery Plastic and Reconstructive Surgery
DX: E66.01 Morbid (severe) obesity due to excess calories (principal); Z71.3 Dietary counseling and surveillance; Z68.29 Body mass index [BMI] 29.0-29.9, adult
CPT/HCPCS: 84255; 84134; 84425; 80061; 80053; 82607; 82728; 83036; 82525; 82746; 83540; 83550; 83735; 84100; 84443; 84590; 84630; 85027; 85610; 85730; 82306; 83970; 97803; 36415; G0463; 99211

== ENCOUNTER → 2017-01-21 | Outpatient (CLI) | payer MEDICARE, BC ==
[2017-01-21 15:03] VITALS: BMI 24.2
[2017-01-21 15:21] VITALS: BP 159/70; PULSE 73; RESP 16; TEMP 98.1
[2017-01-21 16:53] LABS: CH 30.6; CHCM 32.2; HCT 45.4 % (34.0-46.0); HDW 2.48; MCH 29.5 pg (25.0-35.0); MCHC 30.9 g/dL (31.0-37.0); MCV 95.7 fL (80.0-100.0); Mean Platelet Volume 8.1; RBC 4.74 m/uL (3.80-5.40); RDW 14.5 % (11.5-15.5); WBC 5.5 k/uL (3.8-10.6)
[2017-01-21 16:59] LABS: ALT 25 U/L (9-52); AST 22 U/L (14-36); Alkaline Phosphatase 93 U/L (38-126); Anion Gap 12 mmol/L; Blood Urea Nitrogen 18 mg/dL (7-17); Calcium 9.8 mg/dL (8.4-10.2); Carbon Dioxide 25 mmol/L (22-30); Chloride 107 mmol/L (98-107); Cholesterol 199 mg/dL (<200); Glucose 94 mg/dL (74-99); HDL Cholesterol 75 mg/dL (40-60); Iron 55 ug/dL (37-170); Magnesium 1.9 mg/dL (1.6-2.3); Non-African American GFR(MDRD) >60 (>60 ml/min/1.73 sqM); Partial Thromboplastin Time 23.3 sec (22.0-30.0); Phosphorous 4.6 mg/dL (2.5-4.5); Prothrombin Time 10.3 sec (9.0-12.0); Sodium 144 mmol/L (137-145); Total Bilirubin 0.5 mg/dL (0.2-1.3); Total Protein 7.2 g/dL (6.3-8.2)
[2017-01-21 17:09] LABS: % Iron Saturation 17.6 % (20-50); Prealbumin 15 mg/dL (18-36); Total Iron Binding Capacity 312 ug/dL (265-497)
[2017-01-21 18:04] LABS: Vitamin B12 709 pg/mL
[2017-01-21 18:06] LABS: Hemoglobin A1C 5.6 % (4.2-6.1)
[2017-01-24 10:53] LABS: Selenium 96 mcg/L (63-160)
== END | disposition home or self-care (01) ==
LOC: BARWHC3 14:00
PROVIDERS: ATTEND Surgery Plastic and Reconstructive Surgery
DX: Z48.815 Encounter for surgical aftercare following surgery on the digestive system (principal); E66.01 Morbid (severe) obesity due to excess calories; Z98.84 Bariatric surgery status; E21.1 Secondary hyperparathyroidism, not elsewhere classified; E89.1 Postprocedural hypoinsulinemia; Z71.3 Dietary counseling and surveillance; D50.8 Other iron deficiency anemias; D44.0 Neoplasm of uncertain behavior of thyroid gland; T56.894A Toxic effect of other metals, undetermined, initial encounter; K50.90 Crohn's disease, unspecified, without complications; Z88.0 Allergy status to penicillin; Z88.6 Allergy status to analgesic agent; Z68.24 Body mass index [BMI] 24.0-24.9, adult
CPT/HCPCS: 84255; 84134; 84425; 80061; 80053; 82607; 82728; 83036; 82525; 82746; 83540; 83550; 83735; 84100; 84443; 84590; 84630; 85027; 85610; 85730; 82306; 83970; 97803; 36415; G0463; 99211

== ENCOUNTER → 2017-04-15 | Outpatient (CLI) | payer MEDICARE, BC ==
[2017-04-15 14:44] VITALS: BP 174/82; PULSE 63; RESP 16; TEMP 97; BMI 22.4
[2017-04-15 16:25] LABS: HCT 39.9 % (34.0-46.0); HGB 12.7 gm/dL (11.4-16.0); MCH 29.8 pg (25.0-35.0); MCHC 31.9 g/dL (31.0-37.0); MCV 93.6 fL (80.0-100.0); Mean Platelet Volume 7.5; Platelet Count 255 k/uL (150-450); RBC 4.26 m/uL (3.80-5.40); RDW 14.4 % (11.5-15.5); WBC 5.2 k/uL (3.8-10.6)
[2017-04-15 16:31] LABS: Prothrombin Time 10.5 sec (9.0-12.0)
[2017-04-15 16:32] LABS: Partial Thromboplastin Time 23.7 sec (22.0-30.0)
[2017-04-15 16:47] LABS: ALT 27 U/L (9-52); AST 19 U/L (14-36); Albumin 3.8 g/dL (3.5-5.0); Alkaline Phosphatase 115 U/L (38-126); Anion Gap 8 mmol/L; Blood Urea Nitrogen 12 mg/dL (7-17); Calcium 9.1 mg/dL (8.4-10.2); Carbon Dioxide 28 mmol/L (22-30); Chloride 105 mmol/L (98-107); Cholesterol 189 mg/dL (<200); Glucose 93 mg/dL (74-99); HDL Cholesterol 85 mg/dL (40-60); LDL Cholesterol,Calculated 89 mg/dL (0-99); Magnesium 1.7 mg/dL (1.6-2.3); Phosphorus 3.9 mg/dL (2.5-4.5); Potassium 3.7 mmol/L (3.5-5.1); Sodium 141 mmol/L (137-145); Total Bilirubin 0.3 mg/dL (0.2-1.3); Triglycerides 77 mg/dL (<150)
[2017-04-16 01:26] LABS: Iron Saturation 19.29 (12.00-45.00)
[2017-04-16 01:35] LABS: Folate, Serum 5.6 ng/mL
[2017-04-16 02:03] LABS: Parathyroid Hormone Intact 76.1 pg/mL (14.0-72.0)
[2017-04-16 02:54] LABS: Hemoglobin A1C 5.6 % (4.0-6.0)
[2017-04-16 13:33] LABS: Zinc, Serum 56 ug/dL (60-130)
[2017-04-17 07:14] LABS: Vitamin B1 48 ug/L (38-122)
[2017-04-17 09:12] LABS: Vitamin A 30 ug/dL (38-106)
[2017-04-17 19:07] LABS: Selenium 111 mcg/L (63-160)
--- NOTE | 2017-06-08 19:01 | P.PN ---
Progress Note - Text Progress Note Date: 04/15/17 DATE OF SERVICE: 04/15/2017 CHIEF COMPLAINT: Follow-up revision from [facility] to Haydee-en-Y gastric bypass. HISTORY OF PRESENT ILLNESS: Claudette Al is a 66-year-old female who is status post revision to her Haydee-en-Y gastric bypass on 07/14/2016. She reports eating protein. No reports of gastroesophageal reflux disease. Her separate concern includes developing panniculitis of the skin. She reports having increased energy. In fact, her depression has improved. At her height of 5 feet and 2 and 1/4 inch, her ideal body weight is 135 pounds. Her highest weight of 210 pounds. Today she comes in weighing 127 pounds. She lost 83 pounds. She has achieved 111 % excess weight loss in 9 months. Body mass index is reduced from 37.9 down to 22.9. She has lost another 8 pounds since her last evaluation within the last 3 months. PAST MEDICAL HISTORY: 1. Morbid obesity. 2. Gastroesophageal reflux disease. 3. Hypertension. 4. Depression. 5. Chronic obstructive pulmonary disease. 6. Osteoarthritis of the lower back. 7. Osteoarthritis of the bilateral hips. 8. History of Faye's esophagus. 9. Posttraumatic stress disorder. PAST SURGICAL HISTORY: 1. Colonoscopy. 2. Upper endoscopy. 3. Lower back surgery. 4. Cholecystectomy. 5. Revision of Tere fundoplasty to Haydee-en-Y gastric bypass. MEDICATIONS: 1. Omeprazole. 2. Multivitamin. 3. Cymbalta. ALLERGIES: PENICILLIN. SOCIAL HISTORY: Lifelong nontobacco user. She is . FAMILY HISTORY: Pertinent for morbid obesity. Also familial history of cancer of unknown type. REVIEW OF SYSTEMS: CONSTITUTIONAL: At her height of 5 feet and 1/4 inch, her ideal body weight is 135 pounds. Her highest weight of 210 pounds. Today she comes in weighing 127 pounds. She lost 76 pounds. She has achieved 111 % excess weight loss in 9 months. Body mass index is reduced from 37.9 down to 22.9. She has lost another 8 pounds since her last evaluation within the last 3 months. GASTROINTESTINAL: No reports of dumping syndrome. Gastroesophageal reflux disease, resolved. History of Faye's esophagus. HEENT: No troubles with vision or hearing. No reports of recent dysphagia. ENDOCRINE: No reports of thyroid disorders or active diabetes. RESPIRATORY: No recent pneumonia. However, has chronic obstructive pulmonary disease. Also, with sleep apnea now resolved. CARDIOVASCULAR: History of hypertension now resolved. No recent heart attack. MUSCULOSKELETAL: Osteoarthritis of the lower back now improved. Also osteoarthritis of the bilateral hips secondary to morbid obesity. NEURO: No reports of stroke or seizure disorders. PSYCH: Depression improved with history of posttraumatic stress disorder. No recent psychosis. HEMATOLOGIC: No reports of pulmonary embolisms or DVTs. BREAST: No breast mass or breast cancer. PHYSICAL EXAM: VITAL SIGNS: 5 feet and 2.5, 127 pounds. Body mass index of 22.9 Vital Signs Temp 97 F L 04/15/17 14:29 Pulse 63 04/15/17 14:29 Resp 16 04/15/17 14:29 BP 174/82 04/15/17 14:29 Pulse Ox ABDOMEN: Soft, nontender, nondistended. No large palpable incisional hernia. GENERAL: Well-developed, pleasant female in no acute distress. HEENT: No scleral icterus. Extraocular movements grossly intact. Moist buccal mucosa. NECK: Supple without lymphadenopathy. CHEST: Nonlabored respirations. Equal bilateral excursions. CARDIOVASCULAR: Regular rate and rhythm. MUSCULOSKELETAL: No clubbing, cyanosis, or edema. NEURO: No focal or lateralizing signs. Cranial nerves II to XII grossly intact. PSYCH: Appropriate affect. Alert and oriented to person, place, and time. SKIN: Has panniculitis. No skin cancer. ASSESSMENT: 1. Morbid obesity due to excess calories, now resolved. 2. Body mass index reduced from 37.9 down to 22.9. 3. Osteoarthritis of bilateral hips, resolved. 4. Osteoarthritis of bilateral knees, resolved. 5. Gastroesophageal reflux disease with history of Faye's esophagus, now resolved. 6. Essential hypertension, improved, 7. Panniculitis. 8. History of depression without suicidal ideation, improved. 9. Obstructive sleep apnea, improved. PLAN: 1. Recommend bariatric metabolic panel. 2. Discontinue omeprazole. 3. She may potentially taper her Cymbalta. 4. Recommend nystatin powder for panniculitis. 5. Follow-up in [facility]. ADDENDUM: Prealbumin was low, zinc deficiency, vitamin A deficiency, elevated PTH level. Laboratory Last Values WBC 5.2 k/uL (3.8-10.6) 04/15/17 15:39 RBC 4.26 m/uL (3.80-5.40) 04/15/17 15:39 Hgb 12.7 gm/dL (11.4-16.0) 04/15/17 15:39 Hct 39.9 % (34.0-46.0) 04/15/17 15:39 MCV 93.6 fL (80.0-100.0) 04/15/17 15:39 MCH 29.8 pg (25.0-35.0) 04/15/17 15:39 MCHC 31.9 g/dL (31.0-37.0) 04/15/17 15:39 RDW 14.4 % (11.5-15.5) 04/15/17 15:39 Plt Count 255 k/uL (150-450) 04/15/17 15:39 PT 10.5 sec (9.0-12.0) 04/15/17 15:39 INR 1.0 (<1.2) 04/15/17 15:39 APTT 23.7 sec (22.0-30.0) 04/15/17 15:39 Sodium 141 mmol/L (137-145) 04/15/17 15:39 Potassium 3.7 mmol/L (3.5-5.1) 04/15/17 15:39 Chloride 105 mmol/L (98-107) 04/15/17 15:39 Carbon Dioxide 28 mmol/L (22-30) 04/15/17 15:39 Anion Gap 8 mmol/L 04/15/17 15:39 BUN 12 mg/dL (7-17) 04/15/17 15:39 Creatinine 0.70 mg/dL (0.52-1.04) 04/15/17 15:39 Est GFR (MDRD) Af Amer >60 (>60 ml/min/1.73 sqM) 04/15/17 15:39 Est GFR (MDRD) Non-Af >60 (>60 ml/min/1.73 sqM) 04/15/17 15:39 Glucose 93 mg/dL (74-99) 04/15/17 15:[address] Glu mg/dL 114 04/15/17 15:39 Hemoglobin A1c 5.6 % (4.0-6.0) 04/15/17 15:39 Calcium 9.1 mg/dL (8.4-10.2) 04/15/17 15:39 Phosphorus 3.9 mg/dL (2.5-4.5) 04/15/17 15:39 Magnesium 1.7 mg/dL (1.6-2.3) 04/15/17 15:39 Iron 60 ug/dL (50-170) 04/15/17 15:39 TIBC 311 ug/dL (228-460) 04/15/17 15:39 Iron Saturation 19.29 (12.00-45.00) 04/15/17 15:39 Ferritin 165.7 ng/mL (10.0-291.0) 04/15/17 15:39 Total Bilirubin 0.3 mg/dL (0.2-1.3) 04/15/17 15:39 AST 19 U/L (14-36) 04/15/17 15:39 ALT 27 U/L (9-52) 04/15/17 15:39 Alkaline Phosphatase 115 U/L (38-126) 04/15/17 15:39 Total Protein 7.0 g/dL (6.3-8.2) 04/15/17 15:39 Albumin 3.8 g/dL (3.5-5.0) 04/15/17 15:39 Prealbumin 12.0 mg/dL (18.0-42.0) L 04/15/17 15:39 Triglycerides 77 mg/dL (<150) 04/15/17 15:39 Cholesterol 189 mg/dL (<200) 04/15/17 15:39 LDL Cholesterol, Calc 89 mg/dL (0-99) 04/15/17 15:39 HDL Cholesterol 85 mg/dL (40-60) H 04/15/17 15:39 Vitamin A 30 ug/dL (38-106) L 04/15/17 15:39 Vitamin B1 48 ug/L (38-122) 04/15/17 15:39 Vitamin B12 468.0 pg/mL (200.0-944.0) 04/15/17 15:39 Folate 5.6 ng/mL 04/15/17 15:39 PTH Intact 76.1 pg/mL (14.0-72.0) H 04/15/17 15:39 Copper 1343 ug/L (810-1990) 04/15/17 15:39 Selenium 111 mcg/L (63-160) 04/15/17 15:39 Zinc 56 ug/dL (60-130) L 04/15/17 15:39
== END | disposition home or self-care (01) ==
LOC: BARWHC3 13:21
PROVIDERS: ATTEND Surgery Plastic and Reconstructive Surgery
DX: Z09 Encounter for follow-up examination after completed treatment for conditions other than malignant neoplasm (principal); I10 Essential (primary) hypertension; M79.3 Panniculitis, unspecified; G47.33 Obstructive sleep apnea (adult) (pediatric); K21.9 Gastro-esophageal reflux disease without esophagitis; F32.9 Major depressive disorder, single episode, unspecified; E21.1 Secondary hyperparathyroidism, not elsewhere classified; E89.1 Postprocedural hypoinsulinemia; D50.9 Iron deficiency anemia, unspecified; K90.9 Intestinal malabsorption, unspecified; E55.9 Vitamin D deficiency, unspecified; K76.9 Liver disease, unspecified; N19 Unspecified kidney failure; K50.90 Crohn's disease, unspecified, without complications; Z88.0 Allergy status to penicillin; Z79.899 Other long term (current) drug therapy; Z90.49 Acquired absence of other specified parts of digestive tract; Z98.890 Other specified postprocedural states; Z98.84 Bariatric surgery status
CPT/HCPCS: 84255; 84134; 84425; 80061; 80053; 82607; 82728; 82525; 82746; 83540; 83550; 83735; 84100; 84590; 84630; 85027; 85610; 85730; 83970; 83036; 36415; G0463; 99211

== ENCOUNTER → 2017-07-15 | Outpatient (CLI) | payer MEDICARE ==
[2017-07-15 14:24] VITALS: BP 172/80; PULSE 69; RESP 16; TEMP 97.7; BMI 23.6
[2017-07-15 15:33] LABS: HCT 38.1 % (34.0-46.0); HGB 12.4 gm/dL (11.4-16.0); MCH 31.5 pg (25.0-35.0); MCHC 32.6 g/dL (31.0-37.0); MCV 96.8 fL (80.0-100.0); Mean Platelet Volume 7.1; Platelet Count 212 k/uL (150-450); RBC 3.94 m/uL (3.80-5.40); RDW 13.2 % (11.5-15.5); WBC 4.6 k/uL (3.8-10.6)
[2017-07-15 15:48] LABS: Partial Thromboplastin Time 23.5 sec (22.0-30.0); Prothrombin Time 9.9 sec (9.0-12.0)
[2017-07-15 15:56] LABS: ALT 18 U/L (9-52); AST 22 U/L (14-36); Albumin 3.6 g/dL (3.5-5.0); Alkaline Phosphatase 99 U/L (38-126); Anion Gap 10 mmol/L; Blood Urea Nitrogen 18 mg/dL (7-17); Calcium 9.3 mg/dL (8.4-10.2); Carbon Dioxide 28 mmol/L (22-30); Chloride 106 mmol/L (98-107); Cholesterol 163 mg/dL (<200); Glucose 93 mg/dL (74-99); HDL Cholesterol 68 mg/dL (40-60); LDL Cholesterol,Calculated 75 mg/dL (0-99); Magnesium 1.8 mg/dL (1.6-2.3); Phosphorus 4.6 mg/dL (2.5-4.5); Potassium 3.9 mmol/L (3.5-5.1); Sodium 144 mmol/L (137-145); Total Bilirubin 0.2 mg/dL (0.2-1.3); Total Protein 6.5 g/dL (6.3-8.2); Triglycerides 99 mg/dL (<150)
[2017-07-16 00:38] LABS: Iron Saturation 21.15 (12.00-45.00)
[2017-07-16 00:48] LABS: Folate, Serum 5.7 ng/mL
[2017-07-16 00:52] LABS: Hemoglobin A1C 5.2 % (4.0-6.0)
[2017-07-16 01:57] LABS: Parathyroid Hormone Intact 78.1 pg/mL (14.0-72.0)
[2017-07-17 00:57] LABS: Zinc, Serum 69 ug/dL (60-130)
[2017-07-17 08:30] LABS: Vitamin A 34 ug/dL (38-106)
[2017-07-18 03:02] LABS: Vitamin B1 45 ug/L (38-122)
[2017-07-18 11:09] LABS: Selenium 110 mcg/L (63-160)
== END | disposition home or self-care (01) ==
LOC: BARWHC3 14:09
PROVIDERS: ATTEND Surgery Plastic and Reconstructive Surgery
DX: E66.01 Morbid (severe) obesity due to excess calories (principal); E21.1 Secondary hyperparathyroidism, not elsewhere classified; E89.1 Postprocedural hypoinsulinemia; D50.9 Iron deficiency anemia, unspecified; E44.0 Moderate protein-calorie malnutrition; E55.9 Vitamin D deficiency, unspecified; K74.1 Hepatic sclerosis; N19 Unspecified kidney failure; K50.90 Crohn's disease, unspecified, without complications; Z71.3 Dietary counseling and surveillance; Z68.23 Body mass index [BMI] 23.0-23.9, adult
CPT/HCPCS: 84255; 84134; 84425; 80061; 80053; 82607; 82728; 82525; 82746; 83540; 83550; 83735; 84100; 84443; 84590; 84630; 85027; 85610; 85730; 82306; 83970; 83036; 97803; G0463; 99211

== ENCOUNTER → 2018-08-11 | Outpatient (CLI) | payer MEDICARE | END | disposition home or self-care (01) | LOC: LABWHC1 16:10 | PROVIDERS: ATTEND Surgery Plastic and Reconstructive Surgery | DX: Z53.9 Procedure and treatment not carried out, unspecified reason (principal) ==

== ENCOUNTER → 2018-08-11 | Outpatient (CLI) | payer MEDICARE ==
[2018-08-11 14:55] VITALS: BP 167/89; PULSE 76; TEMP 98.2; BMI 26.8
--- NOTE | 2018-08-11 15:50 | P.PN ---
Subjective Progress Note Date: 08/11/18 DATE OF SERVICE: 08/11/2018 CHIEF COMPLAINT: Panniculitis HISTORY OF PRESENT ILLNESS: Claudette Al is a 67-year-old female who is status post revision to her Haydee-en-Y gastric bypass on 07/14/2016. She is 2 years out. She reports no nausea or vomiting. No GERD. No abdominal pain. She reports moderate back pain from her skin pulling along her pannus. She has panniculitis for over 2 years and refractory. She has used prescription strength Nystatin powder for treatment however symptoms still recur. She reports troubles with grooming from her pannus with difficulty wearing clothes. At her height of 5 feet and 2 1/4 inch, her ideal body weight is 127 pounds. Her highest weight of 210 pounds. Today she comes in weighing 138 pounds from 131 pounds, 1 year ago with 7 pounds weight gain. She lost 72 pounds lifetime. She has achieved 96 % excess weight loss over 2 years. Body mass index is reduced from 37.9 down to 25.1. PAST MEDICAL HISTORY: 1. Morbid obesity, BMI initial 38.2 2. Gastroesophageal reflux disease. 3. Hypertension. 4. Depression. 5. Chronic obstructive pulmonary disease. 6. Osteoarthritis of the lower back. 7. Osteoarthritis of the bilateral hips. 8. History of Faye's esophagus. 9. Posttraumatic stress disorder. PAST SURGICAL HISTORY: 1. Colonoscopy. 2. Upper endoscopy. 3. Lower back surgery. 4. Cholecystectomy. 5. Revision of Tere fundoplasty to Haydee-en-Y gastric bypass. MEDICATIONS: 1. Multivitamin. ALLERGIES: PENICILLIN. SOCIAL HISTORY: Lifelong nontobacco user. She is . FAMILY HISTORY: Pertinent for morbid obesity. Also familial history of cancer of unknown type. REVIEW OF SYSTEMS: CONSTITUTIONAL: At her height of 5 feet and2 1/4 inch, her ideal body weight is 135 pounds. Her highest weight of 210 pounds. index is reduced from 38.2. GASTROINTESTINAL: No reports of dumping syndrome. Gastroesophageal reflux disease, resolved. History of Faye's esophagus. HEENT: No troubles with vision or hearing. No reports of recent dysphagia. ENDOCRINE: No reports of thyroid disorders or active diabetes. RESPIRATORY: No recent pneumonia. However, has chronic obstructive pulmonary disease. Also, with sleep apnea now resolved. CARDIOVASCULAR: History of hypertension now resolved. No recent heart attack. MUSCULOSKELETAL: Osteoarthritis of the lower back now improved. NEURO: No reports of stroke or seizure disorders. PSYCH: Depression improved with history of posttraumatic stress disorder. No recent psychosis. HEMATOLOGIC: No reports of pulmonary embolisms or DVTs. BREAST: No breast mass or breast cancer. SKIN: Has panniculitis. PHYSICAL EXAM: VITAL SIGNS: 5 feet and 2.25 , 131 pounds. Body mass index of 26.8 Vital Signs Temp 98.2 F 08/11/18 14:39 Pulse 76 08/11/18 14:39 Resp BP 167/89 08/11/18 14:39 Pulse Ox ABDOMEN: Soft, nontender, nondistended. No portsite hernia. GENERAL: Well-developed, pleasant female in no acute distress. HEENT: No scleral icterus. Extraocular movements grossly intact. Moist buccal mucosa. NECK: Supple without lymphadenopathy. CHEST: Nonlabored respirations. Equal bilateral excursions. CARDIOVASCULAR: Regular rate and rhythm. MUSCULOSKELETAL: No clubbing, cyanosis, or edema. NEURO: No focal or lateralizing signs. Cranial nerves II to XII grossly intact. PSYCH: Appropriate affect. Alert and oriented to person, place, and time. SKIN: Has panniculitis. Pannus over 3 pounds with erythema, over pubis 4-inches. No skin cancer. ASSESSMENT: 1. Morbid obesity due to excess calories, now resolved. 2. Body mass index reduced from 38.1 down to 26.8. 3. History of Faye's esophagus 4. Panniculitis. 5. History of depression without suicidal ideation, improved. 6. Chronic obstructive pulmonary disease. 7. Vitamin A deficiency 8. Zinc deficiency 9. Secondary hyperparathyroidism 10. Dietary surveillance and counseling PLAN: 1. With her poorly controlled symptoms, may benefit from panniculectomy. In the meantime, continue with Nystatin powder. 2. Dietary surveillance and counseling for her current weight gain of 7 pounds 3. Panniculectomy packet reviewed. 4. Bariatric labs to correct for macro- and micro malnutrition Laboratory Last Values WBC 5.0 k/uL (3.8-10.6) 08/11/18 16:58 RBC 3.84 m/uL (3.80-5.40) 08/11/18 16:58 Hgb 12.1 gm/dL (11.4-16.0) 08/11/18 16:58 Hct 36.5 % (34.0-46.0) 08/11/18 16:58 MCV 95.0 fL (80.0-100.0) 08/11/18 16:58 MCH 31.5 pg (25.0-35.0) 08/11/18 16:58 MCHC 33.1 g/dL (31.0-37.0) 08/11/18 16:58 RDW 12.9 % (11.5-15.5) 08/11/18 16:58 Plt Count 201 k/uL (150-450) 08/11/18 16:58 PT 9.6 sec (9.0-12.0) 08/11/18 16:58 INR 0.9 (<1.2) 08/11/18 16:58 APTT 22.7 sec (22.0-30.0) 08/11/18 16:58 Sodium 142 mmol/L (135-145) 08/11/18 16:58 Potassium 3.7 mmol/L (3.5-5.5) 08/11/18 16:58 Chloride 107 mmol/L (96-109) 08/11/18 16:58 Carbon Dioxide 26.3 mmol/L (21.6-31.8) 08/11/18 16:58 Anion Gap 8.70 mmol/L (4.00-12.00) 08/11/18 16:58 BUN 19.0 mg/dL (9.0-27.0) 08/11/18 16:58 Creatinine 0.8 mg/dL (0.6-1.5) 08/11/18 16:58 Est GFR (CKD-EPI)AfAm 87.2 (60.0-200.0) 08/11/18 16:58 Est GFR (CKD-EPI)NonAf 75.2 (60.0-200.0) 08/11/18 16:58 BUN/Creatinine Ratio 23.75 Ratio (12.00-20.00) H 08/11/18 16:58 Glucose 87 mg/dL (70-110) 08/11/18 16:[address] Glu mg/dL 114 08/11/18 16:58 Hemoglobin A1c 5.6 % (4.0-6.0) 08/11/18 16:58 Calcium 9.5 mg/dL (8.7-10.3) 08/11/18 16:58 Phosphorus 3.7 mg/dL (2.4-5.1) 08/11/18 16:58 Magnesium 1.9 mg/dL (1.5-2.4) 08/11/18 16:58 Iron 53 ug/dL (50-170) 08/11/18 16:58 TIBC 331 ug/dL (228-460) 08/11/18 16:58 Iron Saturation 16.01 (12.00-45.00) 08/11/18 16:58 Ferritin 84.6 ng/mL (10.0-291.0) 08/11/18 16:58 Total Bilirubin 0.3 mg/dL (0.3-1.2) 08/11/18 16:58 AST 24 U/L (13-35) 08/11/18 16:58 ALT 13 U/L (8-44) 08/11/18 16:58 Alkaline Phosphatase 86 U/L (41-126) 08/11/18 16:58 Total Protein 6.2 g/dL (6.2-8.2) 08/11/18 16:58 Albumin 4.20 g/dL (3.80-4.90) 08/11/18 16:58 Globulin 2.0 g/dL (1.6-3.3) 08/11/18 16:58 Albumin/Globulin Ratio 2.10 g/dL (1.60-3.17) 08/11/18 16:58 Prealbumin 19.0 mg/dL (18.0-42.0) 08/11/18 16:58 Triglycerides 59.0 mg/dL (0.0-149.0) 08/11/18 16:58 Cholesterol 170 mg/dL (0-200) 08/11/18 16:58 LDL Cholesterol, Calc 79.2 mg/dL (0.0-131.0) 08/11/18 16:58 VLDL Cholesterol, Calc 11.80 mg/dL (5.00-40.00) 08/11/18 16:58 HDL Cholesterol 79.0 mg/dL (40.0-60.0) H 08/11/18 16:58 Cholesterol/HDL Ratio 2.15 08/11/18 16:58 Vitamin A 49 ug/dL (38-106) 08/11/18 16:58 Vitamin B1 72 ug/L (38-122) 08/11/18 16:58 Vitamin B12 728.0 pg/mL (200.0-944.0) 08/11/18 16:58 Vitamin D 25-Hydroxy 39.9 ng/mL (30.0-100.0) 08/11/18 16:58 Folate 17.7 ng/mL 08/11/18 16:58 TSH 1.540 uIU/mL (0.350-5.500) 08/11/18 16:58 PTH Intact 60.7 pg/mL (14.0-72.0) 08/11/18 16:58 Copper 1268 ug/L (810-1990) 08/11/18 16:58 Selenium 125 mcg/L (63-160) 08/11/18 16:58 Zinc 81 ug/dL (60-130) 08/11/18 16:58 Objective - Vital Signs Vital signs: Vital Signs Temp 98.2 F 08/11/18 14:39 Pulse 76 08/11/18 14:39 Resp BP 167/89 08/11/18 14:39 Pulse Ox Intake & Output 08/10/18 08/11/18 08/11/18 18:59 06:59 18:59 Weight 62.868 kg - Labs CBC & Chem 7: 08/11/18 16:58 08/11/18 16:58
[2018-08-11 17:33] LABS: HCT 36.5 % (34.0-46.0); HGB 12.1 gm/dL (11.4-16.0); MCH 31.5 pg (25.0-35.0); MCHC 33.1 g/dL (31.0-37.0); Mean Platelet Volume 6.9; Platelet Count 201 k/uL (150-450); RBC 3.84 m/uL (3.80-5.40); RDW 12.9 % (11.5-15.5)
[2018-08-11 17:45] LABS: INR 0.9 (<1.2); Partial Thromboplastin Time 22.7 sec (22.0-30.0); Prothrombin Time 9.6 sec (9.0-12.0)
[2018-08-12 00:35] LABS: Hemoglobin A1C 5.6 % (4.0-6.0)
[2018-08-12 00:52] LABS: Parathyroid Hormone Intact 60.7 pg/mL (14.0-72.0)
[2018-08-12 01:10] LABS: Albumin 4.2 g/dL (3.80-4.90); Albumin/Globulin Ratio 2.1 (1.60-3.17); Anion Gap 8.7 mmol/L (4.00-12.00); Calcium 9.5 mg/dL (8.7-10.3); Carbon Dioxide 26.3 mmol/L (21.6-31.8); LDL Cholesterol,Calculated 79.2 mg/dL (0.0-131.0); Magnesium 1.9 mg/dL (1.5-2.4); Phosphorus 3.7 mg/dL (2.4-5.1); Potassium 3.7 mmol/L (3.5-5.5); Total Bilirubin 0.3 mg/dL (0.3-1.2); Total Protein 6.2 g/dL (6.2-8.2); VLDL Calculation 11.8 mg/dL (5.00-40.00)
[2018-08-12 01:36] LABS: Iron Saturation 16.01 (12.00-45.00)
[2018-08-12 01:45] LABS: Vitamin D 25 Hydroxy 39.9 ng/mL (30.0-100.0)
[2018-08-12 01:48] LABS: Folate, Serum 17.7 ng/mL
[2018-08-12 15:42] LABS: Zinc, Serum 81 ug/dL (60-130)
[2018-08-13 09:38] LABS: Vitamin A 49 ug/dL (38-106)
[2018-08-13 21:27] LABS: Selenium 125 mcg/L (63-160)
[2018-08-16 08:45] LABS: Vit B1(Thiamine) 72 ug/L (38-122)
== END ==
LOC: BARWHC3 13:38
PROVIDERS: ATTEND Surgery Plastic and Reconstructive Surgery
DX: M79.3 Panniculitis, unspecified (principal); K22.70 Barrett's esophagus without dysplasia; J44.9 Chronic obstructive pulmonary disease, unspecified; E50.9 Vitamin A deficiency, unspecified; E60 Dietary zinc deficiency; N25.81 Secondary hyperparathyroidism of renal origin; F32.9 Major depressive disorder, single episode, unspecified; Z71.3 Dietary counseling and surveillance; Z88.0 Allergy status to penicillin; Z90.49 Acquired absence of other specified parts of digestive tract
CPT/HCPCS: 84255; 84134; 84425; 80061; 80053; 82607; 82728; 82525; 82746; 83540; 83550; 83735; 84100; 84443; 84590; 84630; 85027; 85610; 85730; 82306; 83970; 83036; G0463; 99211

== ENCOUNTER → 2019-08-10 | Outpatient (CLI) | payer MEDICARE ==
[2019-08-10 13:19] VITALS: BP 135/65; PULSE 73; RESP 16; TEMP 98.1; BMI 28.6
--- NOTE | 2019-08-10 14:01 | P.PN ---
Subjective Progress Note Date: 08/10/19 DATE OF SERVICE: 08/10/2019 CHIEF COMPLAINT: Status post gastric bypass HISTORY OF PRESENT ILLNESS: Claudette Al is a 68-year-old female who is status post Haydee-en-Y gastric bypass on 07/14/2016. She is 3 years out. She reports 65 grams of protein intake daily. She is not journaling her foods. She has gained weight. She is eating too much carbs. Her daughter is with her. She comes in with new problem of weight re-gain. At her height of 5 feet and 2 1/4 inch, her ideal body weight is 135 pounds. Her highest weight is 210 pounds. Today she comes in weighing 148 pounds from 138 pounds, 1 year ago with 9 pound weight gain. She lost 62 pounds lifetime. She has achieved 83 % excess weight loss, lifetime. Body mass index is reduced from 38.2 down to 26.9. PAST MEDICAL HISTORY: 1. Morbid obesity due to excess calories, BMI initial 38.2 2. Gastroesophageal reflux disease. 3. Hypertension. 4. Depression. 5. Chronic obstructive pulmonary disease. 6. Osteoarthritis of the lower back. 7. Osteoarthritis of the bilateral hips. 8. History of Faye's esophagus. 9. Posttraumatic stress disorder. PAST SURGICAL HISTORY: 1. Colonoscopy. 2. Upper endoscopy. 3. Lower back surgery. 4. Cholecystectomy. 5. Revision of Tere fundoplasty to Haydee-en-Y gastric bypass. MEDICATIONS: 1. Multivitamin. ALLERGIES: PENICILLIN. SOCIAL HISTORY: Lifelong nontobacco user. She is . FAMILY HISTORY: Pertinent for morbid obesity. Also familial history of cancer of unknown type. REVIEW OF SYSTEMS: CONSTITUTIONAL: At her height of 5 feet and 2 1/4 inch, her ideal body weight is 135 pounds. Her highest weight of 210 pounds. Body mass index is reduced from 38.2. GASTROINTESTINAL: No reports of dumping syndrome. Gastroesophageal reflux disease, resolved. History of Faye's esophagus. HEENT: No troubles with vision or hearing. No reports of recent dysphagia. ENDOCRINE: No reports of thyroid disorders or active diabetes. RESPIRATORY: No recent pneumonia. However, has chronic obstructive pulmonary disease. Also, with sleep apnea now resolved. CARDIOVASCULAR: History of hypertension now resolved. No recent heart attack. MUSCULOSKELETAL: Osteoarthritis of the lower back now improved. NEURO: No reports of stroke or seizure disorders. PSYCH: Depression improved with history of posttraumatic stress disorder. No recent psychosis. HEMATOLOGIC: No reports of pulmonary embolisms or DVTs. BREAST: No breast mass or breast cancer. SKIN: Has panniculitis. PHYSICAL EXAM: VITAL SIGNS: 5 feet and 2.25 , 148 pounds. Body mass index of 26.9 Vital Signs Temp 98.1 F 08/10/19 13:15 Pulse 73 08/10/19 13:15 Resp 16 08/10/19 13:15 BP 135/65 08/10/19 13:15 Pulse Ox ABDOMEN: Soft, nontender, nondistended. GENERAL: Well-developed, pleasant female in no acute distress. HEENT: No scleral icterus. Extraocular movements grossly intact. Moist buccal mucosa. NECK: Supple without lymphadenopathy. CHEST: Nonlabored respirations. Equal bilateral excursions. CARDIOVASCULAR: Regular rate and rhythm. MUSCULOSKELETAL: No clubbing, cyanosis, or edema. NEURO: No focal or lateralizing signs. Cranial nerves II to XII grossly intact. PSYCH: Appropriate affect. Alert and oriented to person, place, and time. SKIN: Well perfused, good skin turgor. ASSESSMENT: 1. Morbid obesity due to excess calories, now resolved. 2. Body mass index reduced from 38.2 down to 26.9 3. History of Faye's esophagus 4. Panniculitis. 5. History of depression without suicidal ideation, improved. 6. Chronic obstructive pulmonary disease. 7. Vitamin A deficiency 8. Zinc deficiency 9. Secondary hyperparathyroidism 10. Dietary surveillance and counseling PLAN: 1. Recommend bariatric labs 2. Recommend dietary journal. 3. Follow-up in 1 month with dietary journal and review of labs Laboratory Last Values WBC 4.9 k/uL (3.8-10.6) 08/10/19 14:36 RBC 4.16 m/uL (3.80-5.40) 08/10/19 14:36 Hgb 12.9 gm/dL (11.4-16.0) 08/10/19 14:36 Hct 39.3 % (34.0-46.0) 08/10/19 14:36 MCV 94.5 fL (80.0-100.0) 08/10/19 14:36 MCH 31.0 pg (25.0-35.0) 08/10/19 14:36 MCHC 32.8 g/dL (31.0-37.0) 08/10/19 14:36 RDW 12.2 % (11.5-15.5) 08/10/19 14:36 Plt Count 247 k/uL (150-450) 08/10/19 14:36 PT 9.4 sec (9.0-12.0) 08/10/19 14:36 INR 0.9 (<1.2) 08/10/19 14:36 APTT 22.9 sec (22.0-30.0) 08/10/19 14:36 Sodium 140 mmol/L (135-145) 08/10/19 14:36 Potassium 4.6 mmol/L (3.5-5.5) 08/10/19 14:36 Chloride 104 mmol/L (96-109) 08/10/19 14:36 Carbon Dioxide 26.9 mmol/L (21.6-31.8) 08/10/19 14:36 Anion Gap 9.10 mmol/L (4.00-12.00) 08/10/19 14:36 BUN 28.0 mg/dL (9.0-27.0) H 08/10/19 14:36 Creatinine 0.9 mg/dL (0.6-1.5) 08/10/19 14:36 Est GFR (CKD-EPI)AfAm 75.1 (60.0-200.0) 08/10/19 14:36 Est GFR (CKD-EPI)NonAf 64.8 (60.0-200.0) 08/10/19 14:36 BUN/Creatinine Ratio 31.11 Ratio (12.00-20.00) H 08/10/19 14:36 Glucose 94 mg/dL (70-110) 08/10/19 14:[address] Glu mg/dL 114 08/10/19 14:36 Hemoglobin A1c 5.6 % (4.0-6.0) 08/10/19 14:36 Calcium 9.4 mg/dL (8.7-10.3) 08/10/19 14:36 Phosphorus 4.5 mg/dL (2.4-5.1) 08/10/19 14:36 Magnesium 2.2 mg/dL (1.5-2.4) 08/10/19 14:36 Iron 78 ug/dL (50-170) 08/10/19 14:36 TIBC 362 ug/dL (228-460) 08/10/19 14:36 % Saturation 21.55 (12.00-45.00) 08/10/19 14:36 Ferritin 58.7 ng/mL (10.0-291.0) 08/10/19 14:36 Total Bilirubin 0.3 mg/dL (0.3-1.2) 08/10/19 14:36 AST 23 U/L (13-35) 08/10/19 14:36 ALT 13 U/L (8-44) 08/10/19 14:36 Alkaline Phosphatase 116 U/L (41-126) 08/10/19 14:36 Total Protein 6.7 g/dL (6.2-8.2) 08/10/19 14:36 Albumin 4.50 g/dL (3.80-4.90) 08/10/19 14:36 Globulin 2.2 g/dL (1.6-3.3) 08/10/19 14:36 Albumin/Globulin Ratio 2.05 g/dL (1.60-3.17) 08/10/19 14:36 Prealbumin 20.0 mg/dL (18.0-42.0) 08/10/19 14:36 Triglycerides 98.0 mg/dL (0.0-149.0) 08/10/19 14:36 Cholesterol 176 mg/dL (0-200) 08/10/19 14:36 LDL Cholesterol, Calc 87.4 mg/dL (0.0-131.0) 08/10/19 14:36 VLDL Cholesterol, Calc 19.60 mg/dL (5.00-40.00) 08/10/19 14:36 HDL Cholesterol 69.0 mg/dL (40.0-60.0) H 08/10/19 14:36 Cholesterol/HDL Ratio 2.55 08/10/19 14:36 Vitamin A 46 ug/dL (38-106) 08/10/19 14:36 Vitamin B1 69 ug/L (38-122) 08/10/19 14:36 Vitamin B12 578.0 pg/mL (200.0-944.0) 08/10/19 14:36 Vitamin D 25-Hydroxy 53.9 ng/mL (30.0-100.0) 08/10/19 14:36 Folate 7.3 ng/mL 08/10/19 14:36 TSH 1.740 uIU/mL (0.350-5.500) 08/10/19 14:36 PTH Intact 68.5 pg/mL (14.0-72.0) 08/10/19 14:36 Copper 1643 ug/L (810-1990) 08/10/19 14:36 Selenium 121 mcg/L (63-160) 08/10/19 14:36 Zinc 78 ug/dL (60-130) 08/10/19 14:36 Objective - Vital Signs Vital signs: Vital Signs Temp 98.1 F 08/10/19 13:15 Pulse 73 08/10/19 13:15 Resp 16 08/10/19 13:15 BP 135/65 08/10/19 13:15 Pulse Ox Intake & Output 08/09/19 08/10/19 08/10/19 18:59 06:59 18:59 Weight 67.132 kg - Labs CBC & Chem 7: 08/10/19 14:36 08/10/19 14:36
[2019-08-10 15:31] LABS: HCT 39.3 % (34.0-46.0); HGB 12.9 gm/dL (11.4-16.0); MCHC 32.8 g/dL (31.0-37.0); MCV 94.5 fL (80.0-100.0); Mean Platelet Volume 7.7; Platelet Count 247 k/uL (150-450); RBC 4.16 m/uL (3.80-5.40); RDW 12.2 % (11.5-15.5); WBC 4.9 k/uL (3.8-10.6)
[2019-08-10 15:38] LABS: INR 0.9 (<1.2); Partial Thromboplastin Time 22.9 sec (22.0-30.0); Prothrombin Time 9.4 sec (9.0-12.0)
[2019-08-10 19:13] LABS: % Iron Saturation 21.55 (12.00-45.00); African American GFR (CKD) 75.1 (60.0-200.0); Albumin 4.5 g/dL (3.80-4.90); Albumin/Globulin Ratio 2.05 (1.60-3.17); Anion Gap 9.1 mmol/L (4.00-12.00); BUN/Creat Ratio 31.11 Ratio (12.00-20.00); Calcium 9.4 mg/dL (8.7-10.3); Carbon Dioxide 26.9 mmol/L (21.6-31.8); Chol/HDL Ratio 2.55; Globulin 2.2 g/dL (1.6-3.3); LDL Cholesterol,Calculated 87.4 mg/dL (0.0-131.0); Magnesium 2.2 mg/dL (1.5-2.4); Non-African American GFR(CKD) 64.8 (60.0-200.0); Phosphorus 4.5 mg/dL (2.4-5.1); Potassium 4.6 mmol/L (3.5-5.5); Total Bilirubin 0.3 mg/dL (0.3-1.2); Total Protein 6.7 g/dL (6.2-8.2); VLDL Calculation 19.6 mg/dL (5.00-40.00)
[2019-08-10 19:20] LABS: Ferritin 58.7 ng/mL (10.0-291.0)
[2019-08-10 19:23] LABS: Folate, Serum 7.3 ng/mL
[2019-08-10 23:45] LABS: Hemoglobin A1C 5.6 % (4.0-6.0)
[2019-08-11 12:02] LABS: Zinc, Serum 78 ug/dL (60-130)
[2019-08-12 07:43] LABS: Vitamin A 46 ug/dL (38-106)
[2019-08-12 10:41] LABS: Vit B1(Thiamine) 69 ug/L (38-122)
[2019-08-13 00:30] LABS: Selenium 121 mcg/L (63-160)
== END | disposition home or self-care (01) ==
LOC: BARWHC3 12:48
PROVIDERS: ATTEND Surgery Plastic and Reconstructive Surgery
DX: E66.01 Morbid (severe) obesity due to excess calories (principal); Z68.26 Body mass index [BMI] 26.0-26.9, adult; E50.9 Vitamin A deficiency, unspecified; E60 Dietary zinc deficiency; Z71.3 Dietary counseling and surveillance; J44.9 Chronic obstructive pulmonary disease, unspecified; F32.9 Major depressive disorder, single episode, unspecified; M16.0 Bilateral primary osteoarthritis of hip; M47.816 Spondylosis without myelopathy or radiculopathy, lumbar region; K22.70 Barrett's esophagus without dysplasia; F43.10 Post-traumatic stress disorder, unspecified; Z90.49 Acquired absence of other specified parts of digestive tract; Z98.84 Bariatric surgery status; Z98.890 Other specified postprocedural states; Z80.9 Family history of malignant neoplasm, unspecified; M79.3 Panniculitis, unspecified; I10 Essential (primary) hypertension; Z88.0 Allergy status to penicillin
CPT/HCPCS: 84255; 84134; 84425; 80061; 80053; 82607; 82728; 82525; 82746; 83540; 83550; 83735; 84100; 84443; 84590; 84630; 85027; 85610; 85730; 82306; 83970; 83036; G0463; 99211